=== PATIENT | male | born 1980 | race Caucasian/White ===

== ENCOUNTER 2017-02-05 20:00 | Emergency (ER) | payer BC, OTHER ==
[~2017-02-05 20:00] MED LIST: ALBUTEROL HFA60 DOSE; CELEXA20 MG PO; LOVASTATIN20 MG PO; NORVASC10 MG PO; PROTONIX20 MG PO; SYNTHROID25 MCG PO; TOPROL XL100 MG PO; ZESTRIL20 MG PO
--- NOTE | 2017-02-05 21:39 | DIAGNOSTIC IMAGING REPORT ---
PROCEDURE: CT SINUS/FACIAL BONES W/CONT CLINICAL INDICATION: Facial pain and facial sores. Left orbit and right facial swelling. TECHNIQUE: 95 ml of Isovue 300 injected intravenously and axial images were obtained through the face with coronal reformations. COMPARISON: None. FINDINGS: Mild to moderate soft tissue swelling over the left orbit and left face. There is mild soft tissue swelling over the right lower face. Orbits, sinuses, the rest of the soft tissues are normal. Airway appears normal. IMPRESSION: 1. Mild to moderate soft tissue and left orbit and face, consistent with periorbital cellulitis. 2. Mild soft tissue swelling over the right face. 3. No evidence of orbital cellulitis and post septal orbits appear normal. 4. Findings discussed with Dr. Jann Reddy. All CT scans at this facility use dose modulation, iterative reconstruction, and/or weight-based dosing when appropriate to reduce radiation dose to as low as reasonably achievable.
--- NOTE | 2017-02-05 23:07 | ED CLINICAL REPORT ---
Clinical Report - Physicians/Mid Levels [facility] [address] [place] [address] 02/05/2017 19:59 Patient: RAMA DAVIS Time Seen: 20:31. Arrived- By private vehicle. Historian- patient. HISTORY OF PRESENT ILLNESS Chief Complaint: SKIN RASH. This started about 2 days ago and is still present. It was gradual in onset and has been waxing/waning. It is described as painful. It has been located on the right cheek (left orbital area). It has been located on the left leg. No cause has been identified. Similar symptoms previously: Diagnosis: (facial abscess). Recent medical care: Not recently seen/assessed. REVIEW OF SYSTEMS No fever, chills, sore throat, cough or difficulty breathing. No headache, chest pain, abdominal pain, nausea or diarrhea. No difficulty with urination or vomiting. All systems otherwise negative, except as recorded above. PAST HISTORY See nurses notes. Hypertension. Asthma. Hyperlipidemia. Hypothyroidism. Pancreatitis. GE reflux. 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 Anxiety. Depression. History of oropharyngeal cancer. Previous treatment includes surgery. Surgeries: Right upper extremity fracture repair (wrist). Right lower extremity fracture repair (knee). Medications: Methadone HCl Oral 50mg, daily, last dose yesterday. Albuterol prin. Amlodipine 20 mg, q day. Citalopram Hydrobromide Oral (Tablet 20 mg) 1 tablet, day. Creon Oral (Capsule Delayed Release Particles 6000 unit) 1 capsule, with meals. Levothroid Oral 25 mcg, daily. Lisinopril Oral 20 mg, daily. Allergies: Penicillins. SOCIAL HISTORY Smoker- current status unknown. Alcohol use. Last drink was 2 years ago. Patient is a recovering alcoholic. No drug use. ADDITIONAL NOTES The nursing notes have been reviewed. PHYSICAL EXAM Vital Signs: 02/05/2017 20:06 BP: 115/76. HR: 73. RR: 15. O2 saturation: 96%. Temp: 99.4 F. Blum-Hwang pain scale: 6/10. Have been reviewed. Appearance: Alert. Eyes: Pupils equal, round and reactive to light. ENT: Pharynx normal. Neck: Neck supple. CVS: Normal heart rate and rhythm. Heart sounds normal. Respiratory: No respiratory distress. Breath sounds normal. Abdomen: Nontender. Skin: Medium area of cellulitis with tenderness, erythema and warmth to the face, left periorbital area and left cheek. Extremities: Normal external inspection. Extremities nontender. Neuro: No motor deficit. No sensory deficit. LABS, X-RAYS, AND EKG CT Face: IMPRESSION: 1. Mild to moderate soft tissue and left orbit and face, consistent with periorbital cellulitis. 2. Mild soft tissue swelling over the right face. 3. No evidence of orbital cellulitis and post septal orbits appear normal. The study was interpreted contemporaneously by me and discussed with the radiologist. Laboratory Tests: UA-Culture if indicated: (MARINE: 02/05/2017 22:00) ( [facility] 02/05/2017 22:24) Final results Test Result Flag Units (Reference) URINE COLOR YELLOW URINE APPEARANCE CLEAR URINE GLUCOSE NEGATIVE (NEGATIVE) URINE BILIRUBIN NEGATIVE (NEGATIVE) URINE KETONE NEGATIVE (NEGATIVE) URINE SPECIFIC GRAVITY <= 1.005 L (1.010-1.030) URINE PH 6.0 (5.0-8.0) URINE PROTEIN NEGATIVE (NEGATIVE) URINE UROBILINOGEN 0.2 EU/dL (0.2-1.0) URINE NITRITE NEGATIVE (NEGATIVE) URINE BLOOD NEGATIVE (NEGATIVE) URINE LEUK ESTERASE NEGATIVE (NEGATIVE) URINE RBC 0-1 rbc/hpf (0-1) URINE WBC 0-1 wbc/hpf (0-1) URINE EPITHELIAL CELLS 0-1 EPI/hpf (0-5) URINE BACTERIA NONE SEEN (NONE SEEN) URINE COMMENT CULT NOT INDICATED URINE CULTURES ARE SET-UP BASED ON THE FOLLOWING CRITERIA:POSITIVE NITRITEPOSITIVE LEUKOCYTE ESTERASEGREATER THAN 10 WHITE BLOOD CELLSMODERATE (2+) OR GREATER BACTERIA CBC w Diff: (MARINE: 02/05/2017 21:09) ( [facility] 02/05/2017 21:41) Final results Test Result Flag Units (Reference) WHITE BLOOD COUNT 12.6 H K/uL (4.5-11.5) RED BLOOD COUNT 4.72 M/uL (4.50-5.90) HEMOGLOBIN 14.1 gm/dL (13.5-17.5) HEMATOCRIT 41.5 % (41.0-53.0) MEAN CELL VOLUME 88 fL (80-100) MEAN CORPUSCULAR HGB 30 pg (26-34) MEAN CORPUSCULAR HGB CONC 34 g/dL (31-37) RED CELL DISTRIBUTION WIDTH 13.4 % (11.6-14.8) PLATELET COUNT 211 K/uL (150-400) NEUTROPHIL % 83.0 H % (50-75) LYMPH % 11.1 L % (25-40) MONO % 4.7 % (3-14) EOSINOPHIL % 0.6 % (0-4) BASOPHIL % 0.6 % (0-2) Lactate, Serum: (MARINE: 02/05/2017 21:31) ( [facility] 02/05/2017 22:05) Final results Test Result Flag Units (Reference) LACTIC ACID 1.9 mmol/L (0.4-2.0) CMP: (MARINE: 02/05/2017 21:23) ( [facility] 02/05/2017 21:49) Final results Test Result Flag Units (Reference) GLUCOSE 141 H mg/dL (70-110) BUN 12 mg/dL (7-18) CREATININE 1.0 mg/dL (0.6-1.3) Estimated GFR >60 mL/min Estimated GFR- >60 mL/min Note: Persistent reduction over 3 months in eGFR<60 mL/min/1.73 m2 defines CKD. Patients with eGFR values>=60 mL/min/1.73 m2 may also have CKD if evidence ofpersistent proteinuria. Additional information may be foundat www.kidney.org. SODIUM 137 mmol/L (136-145) POTASSIUM 4.3 mmol/L (3.5-5.1) CHLORIDE 102 mmol/L (98-107) CARBON DIOXIDE 31 mmol/L (21-32) CALCIUM 8.7 mg/dL (8.5-10.1) TOTAL PROTEIN 6.6 g/dL (6.4-8.2) ALBUMIN 3.4 g/dL (3.3-5.0) BILIRUBIN, TOTAL 0.2 mg/dL (0.0-1.0) ALKALINE PHOSPHATASE 95 U/L (46-116) AST (SGOT) 14 L U/L (15-37) ALT (SGPT) 23 U/L (12-78) Urine Drug Screen: (MARINE: 02/05/2017 22:00) ( [facility] 02/05/2017 22:41) Final results Test Result Flag Units (Reference) AMPHETAMINE/METHAMPHETAMINE POSITIVE H (NEGATIVE) BARBITURATE NEGATIVE (NEGATIVE) BENZODIAZEPINE NEGATIVE (NEGATIVE) CANNABINOID NEGATIVE (NEGATIVE) COCAINE NEGATIVE (NEGATIVE) ECSTASY NEGATIVE (NEGATIVE) METHADONE POSITIVE H (NEGATIVE) OPIATE POSITIVE H (NEGATIVE) The urine drug screen is a qualitative screening test fordrug overdose and abuse. All screen results should beconsidered as presumptive.Drugs screened for are as follows:BenzodiazepinesCocaineAmphetamines/MetamphetaminesTHC (Tetrahydrocannabinol)OpiatesBarbituratesEcstasyMethadonePositive results are unconfirmed. For confirmation, notifythe lab for the specimen to be sent to the reference lab.All confirmations must be performed by a differentmethodology.The ingestion of natural herbal and plant productscontaining Ephedra/Ephedra metabolites can produce in urineone or more substances capable of cross reacting withamphetamine/methamphetamine immunoassays. These testsprovide a preliminary result only. A more specificalternative chemical method must be used to obtain aconfirmed analytical result. BNP: (MARINE: 02/05/2017 21:09) ( [facility] 02/05/2017 21:40) Final results Test Result Flag Units (Reference) B-TYPE NATRIURETIC PEPTIDE 70.9 pg/ml (5-100) Lipase: (MARINE: 02/05/2017 21:09) ( [facility] 02/05/2017 22:10) Final results Test Result Flag Units (Reference) LIPASE 40 L U/L (73-393) AMYLASE 22 L U/L (25-115) THYROID STIMULATING HORMONE 0.885 uIU/mL (0.34-3.74) . PROGRESS AND PROCEDURES Course of Care: Patient is stable. Patient/family counseled. Old medical records reviewed. Disposition: Discharged. Condition: stable. CLINICAL IMPRESSION Cellulitis of the left periorbital area and left cheek area. Substance abuse- narcotics, amphetamines and methamphetamines. INSTRUCTIONS Warnings: Further evaluation is necessary. GENERAL WARNINGS: Return or contact your physician immediately if your condition worsens or changes unexpectedly, if not improving as expected, or if other problems arise. Your Current Medications: CONTINUE TAKING THE FOLLOWING MEDICATIONS: Albuterol prin*. Amlodipine* : 20 mg q day. Citalopram Hydrobromide Oral : Tablet 20 mg, 1 tablet day. Creon Oral : Capsule Delayed Release Particles 6000 unit, 1 capsule with meals. Levothroid Oral : 25 mcg daily. Lisinopril Oral : 20 mg daily. Methadone HCl Oral : 50mg daily, Last: yesterday. Prescription Medications: Clindamycin 300 mg: take 1 capsule orally every 6 hours for 10 days. No refill. Understanding of the discharge instructions verbalized by patient. Follow-up with: [facility], , , [address], , [place], [address] Follow up tomorrow. Call for an appointment. (Electronically signed by Jann Reddy MD 02/06/2017 8:31)
--- NOTE | 2017-02-05 23:07 | ED NURSING NOTES ---
Clinical Report - Nurses [facility] [address] [place] [address] 02/05/2017 19:59 [id number] Triage time 20:06. Acuity: LEVEL 3. Chief Complaint: (facial swelling, redness and pain on left leg.). Alert. No acute distress. --20:13 Michelle Franks R.N. 20:06 02/05/17. BP: 115/76. HR: 73. RR: 15 (regular and unlabored). O2 saturation: 96% on room air. Temp: 99.4 F (oral). Blum-Hwang pain scale: 6/10. --20:13 Michelle Franks R.N. Weight: 81.6 kg stated. Height/Length: 73 inches Per Patient. BMI: 23.7. --20:10 Michelle Franks R.N. Medications Albuterol prin. Amlodipine 20 mg, q day. Citalopram Hydrobromide Oral (Tablet 20 mg) 1 tablet, day. Creon Oral (Capsule Delayed Release Particles 6000 unit) 1 capsule, with meals. Levothroid Oral 25 mcg, daily. Lisinopril Oral 20 mg, daily. --20:09 Michelle Franks R.N. Methadone HCl Oral 50mg, daily, last dose yesterday. --20:09 Michelle Franks R.N. Allergies Penicillins. --20:09 Michelle Franks R.N. History Arrived by private vehicle. Historian: patient. Accompanied by (dropped off by , will be back to pick him up). Primary physician (None). Onset. (about 2 days ago). He has had weakness. 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 (last dose about 2 hours PIPE STRIPPER). PAST MEDICAL HX: Immunizations: up-to-date. SOCIAL HX: Heavy tobacco smoker (cigarette)- 1 pack per day. Alcohol use. Last drink was 2 years ago. No drug use. NUTRITIONAL RISK ASSESSMENT: The nutritional risk assessment revealed no deficiencies. FUNCTIONAL ASSESSMENT: Functional assessment: no impairments noted. --20:13 Michelle Franks R.N. PROBLEMS: Asthma. Depression. Anxiety Reaction. Gastroesophageal Reflux. Cardiovascular Risk Factors. Atypical Chest Pain. Hypertension. Thyroid Disease. Cholesterol problems . --20:10 Michelle Franks R.N. Leukocytosis [RuleOut]. Abdominal Pain [RuleOut]. Pancreatitis [RuleOut]. --20:10 Michelle Franks R.N. ADDITIONAL SURGERIES: Ca bx in the mouth. Wrist rt, knee rt. --20:10 Michelle Franks R.N. Interventions ID band on patient. To treatment room. --20:13 Michelle Franks R.N. PHYSICAL ASSESSMENT Ambulatory to room. ( pt presents with multiple sores on face). GENERAL / NEURO / PSYCH: Alert. Oriented X 4. Appears in no acute distress. HEENT: ( facial swelling around left eye noted.). Mucous membranes are pink. RESPIRATORY: Respirations not labored. CVS: Capillary refill less than 2 seconds. SKIN: Skin is warm and dry. Erythematous skin rash located on the left leg. --20:15 Michelle Franks R.N. NURSING PROGRESS NOTES Head of bed elevated. Two patient identifiers checked. Call light placed in reach. Side rails up x 1. Bed placed in lowest position. Brakes of bed on. --20:15 Michelle Franks R.N. Patient ready for evaluation- chart flagged. --20:15 Michelle Franks R.N. 21:14 02/05/2017 Site #1 started via IV in the right antecubital space with an 20g angiocath; one attempt. Blood drawn: rainbow set. Labeled in the presence of the patient and sent to the lab. Saline lock flushed with saline. --:24 William Veliz R.N. :24 02/05/2017 Started bag #1 1000 mL IV Fluids IV NS (Saline); at 1000 mL/hr over 1 hour(s) via site #1 via IV pump. Allergies verified and confirmed 5 rights. IV patency established. IV site checked: no pain, redness, or swelling. IV flushed thoroughly pre- and post-medication administration. --21:24 William Veliz R.N. 21:25 02/05/2017 Started 1 gm of Vancomycin IVPB in bag #1 200 mL; at 200 mL/hr over 2 hour(s) via site #1 via IV pump. Allergies verified and confirmed 5 rights. IV patency established. IV site checked: no pain, redness, or swelling. IV flushed thoroughly pre- and post-medication administration. --21:25 William Veliz R.N. 21:34 02/05/2017 Dilaudid (HYDROmorphone HCl PF) IVP 0.5 mg given over 2 minute(s) via site #1. Allergies verified, confirmed 5 rights and sedative warning given to the patient and patient's coil connector. IV patency established. IV site checked: no pain, redness, or swelling. IV flushed thoroughly pre- and post-medication administration. --21:34 William Veliz R.N. ( urine cup given to patient and sample requested). --21:36 William Veliz R.N. DISPOSITION / DISCHARGE 23:28 02/05/17. BP: 128/75. HR: 65. RR: 18. O2 saturation: 96% on room air. --23:30 William Veliz R.N. Departure time: 2327. Condition at departure: stable. Learning barriers present. Discharge instructions provided and reviewed with the patient. Reviewed warnings. Reviewed medication(s) side effects, precautions, dosing and course information. Prescription(s) given to the patient. Treatments reviewed. Reviewed referrals for followup. Patient verbalized understanding. Written instructions provided in [place]. The patient was discharged home and accompanied by coil connector. He left the Emergency Department ambulatory and via private vehicle. Office Aide driving. --23:30 William Veliz R.N. 22:31 02/05/2017 IV Fluids IV NS Discontinued: completed. Total amount infused: 1000 mL. IV patency established. IV site checked: no pain, redness, or swelling. IV flushed thoroughly. --23:31 William Veliz R.N. 23:20 02/05/2017 Site #1 removed upon discharge. Manual pressure and bandaid applied. --23:30 William Veliz R.N. 23:21 02/05/2017 Vancomycin IVPB Discontinued: infused. Total amount infused: 200 mL. IV patency established. IV site checked: no pain, redness, or swelling. IV flushed thoroughly. --23:31 William Veliz R.N. Locked/Released at 02/05/2017 23:32 by William Veliz R.N.
--- NOTE | 2017-02-05 23:07 | ED NURSING NOTES ---
Clinical Report - Nurses [facility] [address] [place] [address] 02/05/2017 19:59 [id number] Triage time 20:06. Acuity: LEVEL 3. Chief Complaint: (facial swelling, redness and pain on left leg.). Alert. No acute distress. --20:13 Michelle Franks R.N. 20:06 02/05/17. BP: 115/76. HR: 73. RR: 15 (regular and unlabored). O2 saturation: 96% on room air. Temp: 99.4 F (oral). Blum-Hwang pain scale: 6/10. --20:13 Michelle Franks R.N. Weight: 81.6 kg stated. Height/Length: 73 inches Per Patient. BMI: 23.7. --20:10 Michelle Franks R.N. Medications Albuterol prin. Amlodipine 20 mg, q day. Citalopram Hydrobromide Oral (Tablet 20 mg) 1 tablet, day. Creon Oral (Capsule Delayed Release Particles 6000 unit) 1 capsule, with meals. Levothroid Oral 25 mcg, daily. Lisinopril Oral 20 mg, daily. --20:09 Michelle Franks R.N. Methadone HCl Oral 50mg, daily, last dose yesterday. --20:09 Michelle Franks R.N. Allergies Penicillins. --20:09 Michelle Franks R.N. History Arrived by private vehicle. Historian: patient. Accompanied by (dropped off by , will be back to pick him up). Primary physician (None). Onset. (about 2 days ago). He has had weakness. 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 (last dose about 2 hours TEXTURING MACHINE FIXER). PAST MEDICAL HX: Immunizations: up-to-date. SOCIAL HX: Heavy tobacco smoker (cigarette)- 1 pack per day. Alcohol use. Last drink was 2 years ago. No drug use. NUTRITIONAL RISK ASSESSMENT: The nutritional risk assessment revealed no deficiencies. FUNCTIONAL ASSESSMENT: Functional assessment: no impairments noted. --20:13 Michelle Franks R.N. PROBLEMS: Asthma. Depression. Anxiety Reaction. Gastroesophageal Reflux. Cardiovascular Risk Factors. Atypical Chest Pain. Hypertension. Thyroid Disease. Cholesterol problems . --20:10 Michelle Franks R.N. Leukocytosis [RuleOut]. Abdominal Pain [RuleOut]. Pancreatitis [RuleOut]. --20:10 Michelle Franks R.N. ADDITIONAL SURGERIES: Ca bx in the mouth. Wrist rt, knee rt. --20:10 Michelle Franks R.N. Interventions ID band on patient. To treatment room. --20:13 Michelle Franks R.N. PHYSICAL ASSESSMENT Ambulatory to room. ( pt presents with multiple sores on face). GENERAL / NEURO / PSYCH: Alert. Oriented X 4. Appears in no acute distress. HEENT: ( facial swelling around left eye noted.). Mucous membranes are pink. RESPIRATORY: Respirations not labored. CVS: Capillary refill less than 2 seconds. SKIN: Skin is warm and dry. Erythematous skin rash located on the left leg. --20:15 Michelle Franks R.N. NURSING PROGRESS NOTES Head of bed elevated. Two patient identifiers checked. Call light placed in reach. Side rails up x 1. Bed placed in lowest position. Brakes of bed on. --20:15 Michelle Franks R.N. Patient ready for evaluation- chart flagged. --20:15 Michelle Franks R.N. 21:14 02/05/2017 Site #1 started via IV in the right antecubital space with an 20g angiocath; one attempt. Blood drawn: rainbow set. Labeled in the presence of the patient and sent to the lab. Saline lock flushed with saline. --:24 William Veliz R.N. :24 02/05/2017 Started bag #1 1000 mL IV Fluids IV NS (Saline); at 1000 mL/hr over 1 hour(s) via site #1 via IV pump. Allergies verified and confirmed 5 rights. IV patency established. IV site checked: no pain, redness, or swelling. IV flushed thoroughly pre- and post-medication administration. --21:24 William Veliz R.N. 21:25 02/05/2017 Started 1 gm of Vancomycin IVPB in bag #1 200 mL; at 200 mL/hr over 2 hour(s) via site #1 via IV pump. Allergies verified and confirmed 5 rights. IV patency established. IV site checked: no pain, redness, or swelling. IV flushed thoroughly pre- and post-medication administration. --21:25 William Veliz R.N. 21:34 02/05/2017 Dilaudid (HYDROmorphone HCl PF) IVP 0.5 mg given over 2 minute(s) via site #1. Allergies verified, confirmed 5 rights and sedative warning given to the patient and patient's solution specialist. IV patency established. IV site checked: no pain, redness, or swelling. IV flushed thoroughly pre- and post-medication administration. --21:34 William Veliz R.N. ( urine cup given to patient and sample requested). --21:36 William Veliz R.N. DISPOSITION / DISCHARGE 23:28 02/05/17. BP: 128/75. HR: 65. RR: 18. O2 saturation: 96% on room air. --23:30 William Veliz R.N. Departure time: 2327. Condition at departure: stable. Learning barriers present. Discharge instructions provided and reviewed with the patient. Reviewed warnings. Reviewed medication(s) side effects, precautions, dosing and course information. Prescription(s) given to the patient. Treatments reviewed. Reviewed referrals for followup. Patient verbalized understanding. Written instructions provided in [place]. The patient was discharged home and accompanied by solution specialist. He left the Emergency Department ambulatory and via private vehicle. Electrical Calibrator driving. --23:30 William Veliz R.N. 22:31 02/05/2017 IV Fluids IV NS Discontinued: completed. Total amount infused: 1000 mL. IV patency established. IV site checked: no pain, redness, or swelling. IV flushed thoroughly. --23:31 William Veliz R.N. 23:20 02/05/2017 Site #1 removed upon discharge. Manual pressure and bandaid applied. --23:30 William Veliz R.N. 23:21 02/05/2017 Vancomycin IVPB Discontinued: infused. Total amount infused: 200 mL. IV patency established. IV site checked: no pain, redness, or swelling. IV flushed thoroughly. --23:31 William Veliz R.N. Locked/Released at 02/05/2017 23:32 by William Veliz R.N.
--- NOTE | 2017-02-05 23:07 | ED CLINICAL REPORT ---
Clinical Report - Physicians/Mid Levels [facility] [address] [place] [address] 02/05/2017 19:59 Patient: RAMA DAVIS Time Seen: 20:31. Arrived- By private vehicle. Historian- patient. HISTORY OF PRESENT ILLNESS Chief Complaint: SKIN RASH. This started about 2 days ago and is still present. It was gradual in onset and has been waxing/waning. It is described as painful. It has been located on the right cheek (left orbital area). It has been located on the left leg. No cause has been identified. Similar symptoms previously: Diagnosis: (facial abscess). Recent medical care: Not recently seen/assessed. REVIEW OF SYSTEMS No fever, chills, sore throat, cough or difficulty breathing. No headache, chest pain, abdominal pain, nausea or diarrhea. No difficulty with urination or vomiting. All systems otherwise negative, except as recorded above. PAST HISTORY See nurses notes. Hypertension. Asthma. Hyperlipidemia. Hypothyroidism. Pancreatitis. GE reflux. 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 Anxiety. Depression. History of oropharyngeal cancer. Previous treatment includes surgery. Surgeries: Right upper extremity fracture repair (wrist). Right lower extremity fracture repair (knee). Medications: Methadone HCl Oral 50mg, daily, last dose yesterday. Albuterol prin. Amlodipine 20 mg, q day. Citalopram Hydrobromide Oral (Tablet 20 mg) 1 tablet, day. Creon Oral (Capsule Delayed Release Particles 6000 unit) 1 capsule, with meals. Levothroid Oral 25 mcg, daily. Lisinopril Oral 20 mg, daily. Allergies: Penicillins. SOCIAL HISTORY Smoker- current status unknown. Alcohol use. Last drink was 2 years ago. Patient is a recovering alcoholic. No drug use. ADDITIONAL NOTES The nursing notes have been reviewed. PHYSICAL EXAM Vital Signs: 02/05/2017 20:06 BP: 115/76. HR: 73. RR: 15. O2 saturation: 96%. Temp: 99.4 F. Blum-Hwang pain scale: 6/10. Have been reviewed. Appearance: Alert. Eyes: Pupils equal, round and reactive to light. ENT: Pharynx normal. Neck: Neck supple. CVS: Normal heart rate and rhythm. Heart sounds normal. Respiratory: No respiratory distress. Breath sounds normal. Abdomen: Nontender. Skin: Medium area of cellulitis with tenderness, erythema and warmth to the face, left periorbital area and left cheek. Extremities: Normal external inspection. Extremities nontender. Neuro: No motor deficit. No sensory deficit. LABS, X-RAYS, AND EKG CT Face: IMPRESSION: 1. Mild to moderate soft tissue and left orbit and face, consistent with periorbital cellulitis. 2. Mild soft tissue swelling over the right face. 3. No evidence of orbital cellulitis and post septal orbits appear normal. The study was interpreted contemporaneously by me and discussed with the radiologist. Laboratory Tests: UA-Culture if indicated: (MARINE: 02/05/2017 22:00) ( [facility] 02/05/2017 22:24) Final results Test Result Flag Units (Reference) URINE COLOR YELLOW URINE APPEARANCE CLEAR URINE GLUCOSE NEGATIVE (NEGATIVE) URINE BILIRUBIN NEGATIVE (NEGATIVE) URINE KETONE NEGATIVE (NEGATIVE) URINE SPECIFIC GRAVITY <= 1.005 L (1.010-1.030) URINE PH 6.0 (5.0-8.0) URINE PROTEIN NEGATIVE (NEGATIVE) URINE UROBILINOGEN 0.2 EU/dL (0.2-1.0) URINE NITRITE NEGATIVE (NEGATIVE) URINE BLOOD NEGATIVE (NEGATIVE) URINE LEUK ESTERASE NEGATIVE (NEGATIVE) URINE RBC 0-1 rbc/hpf (0-1) URINE WBC 0-1 wbc/hpf (0-1) URINE EPITHELIAL CELLS 0-1 EPI/hpf (0-5) URINE BACTERIA NONE SEEN (NONE SEEN) URINE COMMENT CULT NOT INDICATED URINE CULTURES ARE SET-UP BASED ON THE FOLLOWING CRITERIA:POSITIVE NITRITEPOSITIVE LEUKOCYTE ESTERASEGREATER THAN 10 WHITE BLOOD CELLSMODERATE (2+) OR GREATER BACTERIA CBC w Diff: (MARINE: 02/05/2017 21:09) ( [facility] 02/05/2017 21:41) Final results Test Result Flag Units (Reference) WHITE BLOOD COUNT 12.6 H K/uL (4.5-11.5) RED BLOOD COUNT 4.72 M/uL (4.50-5.90) HEMOGLOBIN 14.1 gm/dL (13.5-17.5) HEMATOCRIT 41.5 % (41.0-53.0) MEAN CELL VOLUME 88 fL (80-100) MEAN CORPUSCULAR HGB 30 pg (26-34) MEAN CORPUSCULAR HGB CONC 34 g/dL (31-37) RED CELL DISTRIBUTION WIDTH 13.4 % (11.6-14.8) PLATELET COUNT 211 K/uL (150-400) NEUTROPHIL % 83.0 H % (50-75) LYMPH % 11.1 L % (25-40) MONO % 4.7 % (3-14) EOSINOPHIL % 0.6 % (0-4) BASOPHIL % 0.6 % (0-2) Lactate, Serum: (MARINE: 02/05/2017 21:31) ( [facility] 02/05/[facility] 22:05) Final results Test Result Flag Units (Reference) LACTIC ACID 1.9 mmol/L (0.4-2.0) CMP: (MARINE: 02/05/2017 21:23) ( [facility] 02/05/2017 21:49) Final results Test Result Flag Units (Reference) GLUCOSE 141 H mg/dL (70-110) BUN 12 mg/dL (7-18) CREATININE 1.0 mg/dL (0.6-1.3) Estimated GFR >60 mL/min Estimated GFR- >60 mL/min Note: Persistent reduction over 3 months in eGFR<60 mL/min/1.73 m2 defines CKD. Patients with eGFR values>=60 mL/min/1.73 m2 may also have CKD if evidence ofpersistent proteinuria. Additional information may be foundat www.kidney.org. SODIUM 137 mmol/L (136-145) POTASSIUM 4.3 mmol/L (3.5-5.1) CHLORIDE 102 mmol/L (98-107) CARBON DIOXIDE 31 mmol/L (21-32) CALCIUM 8.7 mg/dL (8.5-10.1) TOTAL PROTEIN 6.6 g/dL (6.4-8.2) ALBUMIN 3.4 g/dL (3.3-5.0) BILIRUBIN, TOTAL 0.2 mg/dL (0.0-1.0) ALKALINE PHOSPHATASE 95 U/L (46-116) AST (SGOT) 14 L U/L (15-37) ALT (SGPT) 23 U/L (12-78) Urine Drug Screen: (MARINE: 02/05/2017 22:00) ( [facility] 22:41[facility] Final results Test Result Flag Units (Reference) AMPHETAMINE/METHAMPHETAMINE POSITIVE H (NEGATIVE) BARBITURATE NEGATIVE (NEGATIVE) BENZODIAZEPINE NEGATIVE (NEGATIVE) CANNABINOID NEGATIVE (NEGATIVE) COCAINE NEGATIVE (NEGATIVE) ECSTASY NEGATIVE (NEGATIVE) METHADONE POSITIVE H (NEGATIVE) OPIATE POSITIVE H (NEGATIVE) The urine drug screen is a qualitative screening test fordrug overdose and abuse. All screen results should beconsidered as presumptive.Drugs screened for are as follows:BenzodiazepinesCocaineAmphetamines/MetamphetaminesTHC (Tetrahydrocannabinol)OpiatesBarbituratesEcstasyMethadonePositive results are unconfirmed. For confirmation, notifythe lab for the specimen to be sent to the reference lab.All confirmations must be performed by a differentmethodology.The ingestion of natural herbal and plant productscontaining Ephedra/Ephedra metabolites can produce in urineone or more substances capable of cross reacting withamphetamine/methamphetamine immunoassays. These testsprovide a preliminary result only. A more specificalternative chemical method must be used to obtain aconfirmed analytical result. BNP: (MARINE: 02/05/2017 21:09) ( [facility] 02/05/2017 21:40) Final results Test Result Flag Units (Reference) B-TYPE NATRIURETIC PEPTIDE 70.9 pg/ml (5-100) Lipase: (MARINE: 02/05/2017 21:09) ( [facility] 02/05/2017 22:10) Final results Test Result Flag Units (Reference) LIPASE 40 L U/L (73-393) AMYLASE 22 L U/L (25-115) THYROID STIMULATING HORMONE 0.885 uIU/mL (0.34-3.74) . PROGRESS AND PROCEDURES Course of Care: Patient is stable. Patient/family counseled. Old medical records reviewed. Disposition: Discharged. Condition: stable. CLINICAL IMPRESSION Cellulitis of the left periorbital area and left cheek area. Substance abuse- narcotics, amphetamines and methamphetamines. INSTRUCTIONS Warnings: Further evaluation is necessary. GENERAL WARNINGS: Return or contact your physician immediately if your condition worsens or changes unexpectedly, if not improving as expected, or if other problems arise. Your Current Medications: CONTINUE TAKING THE FOLLOWING MEDICATIONS: Albuterol prin*. Amlodipine* : 20 mg q day. Citalopram Hydrobromide Oral : Tablet 20 mg, 1 tablet day. Creon Oral : Capsule Delayed Release Particles 6000 unit, 1 capsule with meals. Levothroid Oral : 25 mcg daily. Lisinopril Oral : 20 mg daily. Methadone HCl Oral : 50mg daily, Last: yesterday. Prescription Medications: Clindamycin 300 mg: take 1 capsule orally every 6 hours for 10 days. No refill. Understanding of the discharge instructions verbalized by patient. Follow-up with: [facility], , , [address], , [place], [id number] Follow up tomorrow. Call for an appointment. (Electronically signed by Jann Reddy MD 02/06/2017 8:31)
--- NOTE | 2017-02-05 23:08 | ED ORDER SUMMARY ---
..... Patient: RAMA DAVIS OrderSheet [facility] VisitID: [id number] [address] [place] [address] 36y, M Registration Date/Time: 02/05/2017 ORDER SHEET Weight: 81.6 kg (stated) Allergies: Penicillins GENERAL ORDERS: UA-Culture if indicated Urgent (20:43 02/05/2017 [facility]) (Ack 20:47 CHagerty ER Tyre Builder) (22:26 DDavis R.N.) BNP Urgent (20:43 02/05/2017 [facility] DO) (Ack 20:47 [facility] Tyre Builder) (21:21 Zbigniew ROSALES) (Cancelled: Other21:21 Zbigniew ROSALES) Amylase Urgent (20:43 02/05/2017 [facility]) (Ack 20:47 [facility] Tyre Builder) (21:23 DDavis R.N.) Lipase Urgent (20:43 02/05/2017 [facility]) (Ack 20:47 [facility] ER Tyre Builder) (21:23 DDavis R.N.) Urine Drug Screen Ur[facility] (20:43 [facility] (Ack 20:47 CHagerty ER Tyre Builder) (22:26 DDavis R.N.) TSH Urgent (20:43 02/05/2017 [facility] DO) (Ack 20:47 CHagerty ER Tyre Builder) (21:23 DDavis R.N.) CT IAC/PF/Orbit w Cont (rule out post septal cellulitis) Urgent (20:44 02/05/2017 [facility]) (Ack 20:47 CHagerty ER Tyre Builder) (Cancelled: Other21:02 CHagerty ER Tyre Builder) CT Sinus/Facial Bones w Cont Urgent (21:02 02/05/2017 [facility] Tyre Builder written order [facility]) (Ack 21:04 CHagerty ER Tyre Builder) (21:24 MCampbell) CBC w Diff Urgent (21:23 02/05/2017 Zbigniew ROSALES) (21:23 DDavis R.N.) CMP Urgent (21:23 02/05/2017 Zbigniew ROSALES) (21:23 DDavis R.N.) Lactate, Serum Urgent (21:23 02/05/2017 Zbigniew ROSALES) (Ack 21:25 DDavis R.N.) (Ack 21:25 Liberty KIMBROUGH Tyre Builder) (21:34 DDavis R.N.) MEDICATION ORDERS: IV FLUIDS: IV NS : initial bolus 1000 mL (1000 mL/hr), then 500 mL/hr for X2 (NOW) (20:42 02/05/2017 [facility]) (Ack 20:47 RCollier R.N.) (21:24 DDavis R.N.) Vancomycin IV 1 gm/200mL (NOW) (20:42 02/05/2017 [facility]) (Ack 20:47 RCollier R.N.) (21:25 DDavis R.N.) Dilaudid IV 0.5 mg (HIGH ALERT MEDICATION, NOW) (21:21 02/05/2017 [facility]) (Ack 21:26 RCollier R.N.) (21:34 DDavis R.N.) ORDER SHEET NOTES: [Electronically signed by William Veliz R.N. (23:32 02/05/2017)] [Electronically signed by Jann Reddy MD (08:31 02/06/2017)] [Electronically locked/signed by William Veliz R.N. (23:32 02/05/2017)]
--- NOTE | 2017-02-05 23:08 | ED ORDER SUMMARY ---
..... Patient: RAMA DAVIS OrderSheet [facility] VisitID: [id number] [address] [place] [address] 36y, M Registration Date/Time: 02/05/2017 ORDER SHEET Weight: 81.6 kg (stated) Allergies: Penicillins GENERAL ORDERS: UA-Culture if indicated Urgent (20:43 02/05/2017 [facility]) (Ack 20:47 CHagerty ER Contracts Administrator) (22:26 DDavis R.N.) BNP Urgent (20:43 02/05/2017 [facility] DO) (Ack 20:47 CHagerty ER Contracts Administrator) (21:21 Zbigniew ROSALES) (Cancelled: Other21:21 Zbigniew ROSALES) Amylase Urgent (20:43 02/05/2017 [facility]) (Ack 20:47 CHagerty ER Contracts Administrator) (21:23 DDavis R.N.) Lipase Urgent (20:43 02/05/2017 [facility]) (Ack 20:47 CHagerty ER Contracts Administrator) (21:23 DDavis R.N.) Urine Drug Screen Ur[facility] (20:43 [facility] ) (Ack 20:47 CHagerty ER Contracts Administrator) (22:26 DDavis R.N.) TSH Urgent (20:43 02/05/2017 [facility] DO) (Ack 20:47 CHagerty ER Contracts Administrator) (21:23 DDavis R.N.) CT IAC/PF/Orbit w Cont (rule out post septal cellulitis) Urgent (20:44 02/05/2017 [facility]) (Ack 20:47 CHagerty ER Contracts Administrator) (Cancelled: Other21:02 CHagerty ER Contracts Administrator) CT Sinus/Facial Bones w Cont Urgent (21:02 02/05/2017 [facility]ager[facility] Contracts Administrator written order [facility]) (Ack 21:04 CHagerty ER Contracts Administrator) (21:24 MCampbell) CBC w Diff Urgent (21:23 02/05/2017 Zbigniew ROSALES) (21:23 DDavis R.N.) CMP Urgent (21:23 02/05/2017 Zbigniew ROSALES) (21:23 DDavis R.N.) Lactate, Serum Urgent (21:23 02/05/2017 Zbigniew ROSALES) (Ack 21:25 DDavis R.N.) (Ack 21:25 Liberty KIMBROUGH Contracts Administrator) (21:34 DDavis R.N.) MEDICATION ORDERS: IV FLUIDS: IV NS : initial bolus 1000 mL (1000 mL/hr), then 500 mL/hr for X2 (NOW) (20:42 02/05/2017 [facility]) (Ack 20:47 RCollier R.N.) (21:24 DDavis R.N.) Vancomycin IV 1 gm/200mL (NOW) (20:42 02/05/2017 [facility]) (Ack 20:47 RCollier R.N.) (21:25 DDavis R.N.) Dilaudid IV 0.5 mg (HIGH ALERT MEDICATION, NOW) (21:21 02/05/2017 [facility]) (Ack 21:26 RCollier R.N.) (21:34 DDavis R.N.) ORDER SHEET NOTES: [Electronically signed by William Veliz R.N. (23:32 02/05/2017)] [Electronically signed by Jann Reddy MD (08:31 02/06/2017)] [Electronically locked/signed by William Veliz R.N. (23:32 02/05/2017)]
--- NOTE | 2017-02-06 08:31 | ED DISCHARGE INSTRUCTIONS ---
Patient: RAMA DAVIS General Instructions [facility] VisitID: [id number] [address] [place] [address] 36y, M Registration Date/Time: 02/05/2017 Cellulitis of the left periorbital area and left cheek area. Substance abuse- narcotics, amphetamines and methamphetamines. INSTRUCTIONS Warnings: Further evaluation is necessary. GENERAL WARNINGS: Return or contact your physician immediately if your condition worsens or changes unexpectedly, if not improving as expected, or if other problems arise. Your Current Medications: CONTINUE TAKING THE FOLLOWING MEDICATIONS: Albuterol prin*. Amlodipine* : 20 mg q day. Citalopram Hydrobromide Oral : Tablet 20 mg, 1 tablet day. Creon Oral : Capsule Delayed Release Particles 6000 unit, 1 capsule with meals. Levothroid Oral : 25 mcg daily. Lisinopril Oral : 20 mg daily. Methadone HCl Oral : 50mg daily, Last: yesterday. Prescription Medications: Clindamycin 300 mg: take 1 capsule orally every 6 hours for 10 days. No refill. Understanding of the discharge instructions verbalized by patient. Follow-up with: [facility], , , [address], , [place], [address] Follow up tomorrow. Call for an appointment. ADDITIONAL INFORMATION Facial Cellulitis You have an infection of the skin known as cellulitis. This usually starts with a scrape, cut or insect bite which becomes infected. It may also occur from an infected oil gland (pimple) or hair follicle. This can be a serious condition and must be watched closely to be sure the infection is not spreading. With antibiotic treatment, the size of the red area will gradually shrink in size until the skin returns to normal. This will take 7-10 days. The red area should never increase in size once the antibiotic medicine has been started. Occasionally, an infection will be resistant to one antibiotic and another one will have to be used. Home Care: 1) Take all of the antibiotic medicine exactly as prescribed until it is gone. Be careful not to miss any doses, especially during the first few days. 2) A cool compress (face cloth soaked in cool water) applied to the face may help with the swelling and pain. 3) You may use acetaminophen (Tylenol) or ibuprofen (Motrin, Advil) to control pain, unless another medicine was prescribed. [ NOTE : If you have chronic liver or kidney disease or ever had a stomach ulcer or GI bleeding, talk with your doctor before using these medicines.] (Aspirin should never be used in anyone under 18 years of age who is ill with a fever. It may cause severe liver damage.) Follow Up with your doctor or this facility as directed. Check the infected area daily for the warning signs listed below. Get Prompt Medical Attention if any of the following occur: -- Increasing area of redness, swelling or pain -- Pus or fluid drainage from the skin or the eye -- Fever of 100.5 F (38 C) oral or 101.5 F (38.6 C) rectal for more than two days on antibiotics -- Eyelid swells shut -- Increasing headache or neck pain -- Unusual drowsiness or confusion -- Convulsion (seizure) Periorbital Cellulitis This is an infection of the tissues around the eye. It is most often due to an infected scratch or insect bite. Sometimes a sinus infection can cause this problem. Home Care: 1) Take your antibiotic medicine exactly as directed, until it is finished. 2) You may use acetaminophen (Tylenol) or ibuprofen (Motrin, Advil) to control pain, unless another pain medicine was prescribed. [NOTE: If you have liver disease or ever had a stomach ulcer, talk with your doctor before using these medicines.] Do not use ibuprofen in children under six months of age. Follow Up with your doctor or as advised by our staff. Return Promptly or contact your doctor if any of the following occur: -- Increasing swelling around the eye -- Increasing redness -- Fever of 100.5 (38 C) oral or 101.5 (38.6 C) rectal for more than two days on antibiotics Drug Abuse Use and abuse of such drugs as marijuana, amphetamines (speed, crank), cocaine, heroin or prescription pain medicines (Vicodin, codeine), sedatives and sleeping pills (Valium, Klonopin), PCP, mescaline and LSD may lead to addiction or dependence. Once this occurs, you are at greater risk for any of the following: Craving for the drug and unable to stop using the drug even though you think you want to stop (psychological dependence) Drug withdrawal symptoms if you stop taking the drug (physical dependence) Loss of your job or your family Arrest, conviction and fdc sentence for possession of an illegal substance or for driving under the influence of such a substance Accidental injuries to yourself or others while you are under the influence of the drug (in a car or at home). HIV infection (much greater risk if you use IV drugs) Other sexually transmitted diseases (herpes, chlamydia, gonorrhea and others) Severe and fatal infection of the heart valves (if you use IV drugs) Stroke, heart attack, hepatitis B or C, kidney failure from overdose Home Care: Admit you have a drug problem. Ask for help from your family and close friends. Seek professional help. This could be in the form of individual psychotherapy or counseling or an outpatient, inpatient, or residential drug treatment program. Join a self-help group for drug abuse. Avoid friends who abuse drugs themselves or tempt you to continue abusing drugs. Eat a balanced diet and begin a regular exercise program. Follow Up with your doctor or as advised by our staff. Contact one of the resources below for help. National [employer] [place] on Alcoholism and Drug Dependence www.ncadd.org 670-596-ZEIY Narcotics Anonymous www.na.org 306-082-1481 National Alcohol and Substance Abuse Information Center (for referral to treatment programs) www.[employer] 961-024-4440 Get Prompt Medical Attention if any of the following occur: Agitation, anxiety, unable to sleep Unintended weight loss (more than 10 to 15 pounds over 3 months) Seizure Chest pain Fever of 100.4F (38C) or higher, or as directed by your healthcare provider Excess drowsiness or inability to be awakened Shortness of breath Slow breathing under 8 breaths per minute Cough with colored sputum Redness, swelling or tenderness at an injection site Clindamycin Hydrochloride Oral capsule What is this medicine? CLINDAMYCIN (KLIN da MYE sin) is a lincosamide antibiotic. It is used to treat certain kinds of bacterial infections. It will not work for colds, flu, or other viral infections. How should I use this medicine? Take this medicine by mouth with a full glass of water. Follow the directions on the prescription label. You can take this medicine with food or on an empty stomach. If the medicine upsets your stomach, take it with food. Take your medicine at regular intervals. Do not take your medicine more often than directed. Take all of your medicine as directed even if you think your are better. Do not skip doses or stop your medicine early. Talk to your security manager regarding the use of this medicine in children. Special care may be needed. What side effects may I notice from receiving this medicine? Side effects that you should report to your doctor or health reproductive healthcare assistant as soon as possible: allergic reactions like skin rash, itching or hives, swelling of the face, lips, or tongue dark urine pain on swallowing redness, blistering, peeling or loosening of the skin, including inside the mouth unusual bleeding or bruising unusually weak or tired yellowing of eyes or skin Side effects that usually do not require medical attention (report to your doctor or health reproductive healthcare assistant if they continue or are bothersome): diarrhea itching in the rectal or genital area joint pain nausea, vomiting stomach pain What may interact with this medicine? chloramphenicol erythromycin kaolin products What if I miss a dose? If you miss a dose, take it as soon as you can. If it is almost time for your next dose, take only that dose. Do not take double or extra doses. Where should I keep my medicine? Keep out of the reach of children. Store at room temperature between 20 and 25 degrees C (68 and 77 degrees F). Throw away any unused medicine after the expiration date. What should I tell my health care provider before I take this medicine? They need to know if you have any of these conditions: kidney disease liver disease stomach problems like colitis an unusual or allergic reaction to clindamycin, lincomycin, or other medicines, foods, dyes like tartrazine or preservatives or trying to get breast-feeding What should I watch for while using this medicine? Tell your doctor or healthcare professional if your symptoms do not start to get better or if they get worse. Do not treat diarrhea with over the counter products. Contact your doctor if you have diarrhea that lasts more than 2 days or if it is severe and watery. You have been given the following additional information: Cellulitis, Facial Carlotta-Orbital Cellulitis Drug Abuse Clindamycin Hydrochloride Oral capsule (Electronically signed by Jann Reddy MD 02/06/2017 8:31)
--- NOTE | 2017-02-06 08:31 | ED MAR SUMMARY ---
..... Medication Administration Record [facility] [address] [place] [address] Patient: RAMA DAVIS Visit ID: [id number] 36y, M Weight: 81.6 kg Height/Length: 73 in BMI: 23.7 ALLERGIES: Penicillins Start 21:24 02/05/2017 William Veliz R.N., Stop 22:31 02/05/2017 William Veliz R.N. Medication Administered: IV NS (SALINE), Dose: IV Fluids over 1 hour(s), Rate: 1000 mL/hr, Dispensed: 1000 mL bag, Site: #1 right AC. Medication Ordered: IV NS : initial bolus 1000 mL (1000 mL/hr), then 500 mL/hr for X2 (NOW). Start 21:25 02/05/2017 William Veliz R.N., Stop 23:02/05/2017 William Veliz R.N. Medication Administered: VANCOMYCIN [IVPB], Dose: 1 gm IVPB over 2 hour(s), Rate: 200 mL/hr, Dispensed: 200 mL bag, Site: #1 right AC. Medication Ordered: Vancomycin IV 1 gm/200mL (NOW). Given 21:34 02/05/2017 William Veliz R.N. Medication Administered: DILAUDID [IVP] (HYDROMORPHONE HCL PF), Dose: 0.5 mg IVP over 2 minute(s), Site: #1 right AC. Medication Ordered: Dilaudid IV 0.5 mg (HIGH ALERT MEDICATION, NOW).
--- NOTE | 2017-02-06 08:31 | ED DISCHARGE INSTRUCTIONS ---
Patient: RAMA DAVIS General Instructions [facility] VisitID: [id number] [address] [place] [address] 36y, M Registration Date/Time: 02/05/2017 Cellulitis of the left periorbital area and left cheek area. Substance abuse- narcotics, amphetamines and methamphetamines. INSTRUCTIONS Warnings: Further evaluation is necessary. GENERAL WARNINGS: Return or contact your physician immediately if your condition worsens or changes unexpectedly, if not improving as expected, or if other problems arise. Your Current Medications: CONTINUE TAKING THE FOLLOWING MEDICATIONS: Albuterol prin*. Amlodipine* : 20 mg q day. Citalopram Hydrobromide Oral : Tablet 20 mg, 1 tablet day. Creon Oral : Capsule Delayed Release Particles 6000 unit, 1 capsule with meals. Levothroid Oral : 25 mcg daily. Lisinopril Oral : 20 mg daily. Methadone HCl Oral : 50mg daily, Last: yesterday. Prescription Medications: Clindamycin 300 mg: take 1 capsule orally every 6 hours for 10 days. No refill. Understanding of the discharge instructions verbalized by patient. Follow-up with: [facility], , , [address], , [place], [id number] Follow up tomorrow. Call for an appointment. ADDITIONAL INFORMATION Facial Cellulitis You have an infection of the skin known as cellulitis. This usually starts with a scrape, cut or insect bite which becomes infected. It may also occur from an infected oil gland (pimple) or hair follicle. This can be a serious condition and must be watched closely to be sure the infection is not spreading. With antibiotic treatment, the size of the red area will gradually shrink in size until the skin returns to normal. This will take 7-10 days. The red area should never increase in size once the antibiotic medicine has been started. Occasionally, an infection will be resistant to one antibiotic and another one will have to be used. Home Care: 1) Take all of the antibiotic medicine exactly as prescribed until it is gone. Be careful not to miss any doses, especially during the first few days. 2) A cool compress (face cloth soaked in cool water) applied to the face may help with the swelling and pain. 3) You may use acetaminophen (Tylenol) or ibuprofen (Motrin, Advil) to control pain, unless another medicine was prescribed. [ NOTE : If you have chronic liver or kidney disease or ever had a stomach ulcer or GI bleeding, talk with your doctor before using these medicines.] (Aspirin should never be used in anyone under 18 years of age who is ill with a fever. It may cause severe liver damage.) Follow Up with your doctor or this facility as directed. Check the infected area daily for the warning signs listed below. Get Prompt Medical Attention if any of the following occur: -- Increasing area of redness, swelling or pain -- Pus or fluid drainage from the skin or the eye -- Fever of 100.5 F (38 C) oral or 101.5 F (38.6 C) rectal for more than two days on antibiotics -- Eyelid swells shut -- Increasing headache or neck pain -- Unusual drowsiness or confusion -- Convulsion (seizure) Periorbital Cellulitis This is an infection of the tissues around the eye. It is most often due to an infected scratch or insect bite. Sometimes a sinus infection can cause this problem. Home Care: 1) Take your antibiotic medicine exactly as directed, until it is finished. 2) You may use acetaminophen (Tylenol) or ibuprofen (Motrin, Advil) to control pain, unless another pain medicine was prescribed. [NOTE: If you have liver disease or ever had a stomach ulcer, talk with your doctor before using these medicines.] Do not use ibuprofen in children under six months of age. Follow Up with your doctor or as advised by our staff. Return Promptly or contact your doctor if any of the following occur: -- Increasing swelling around the eye -- Increasing redness -- Fever of 100.5 (38 C) oral or 101.5 (38.6 C) rectal for more than two days on antibiotics Drug Abuse Use and abuse of such drugs as marijuana, amphetamines (speed, crank), cocaine, heroin or prescription pain medicines (Vicodin, codeine), sedatives and sleeping pills (Valium, Klonopin), PCP, mescaline and LSD may lead to addiction or dependence. Once this occurs, you are at greater risk for any of the following: Craving for the drug and unable to stop using the drug even though you think you want to stop (psychological dependence) Drug withdrawal symptoms if you stop taking the drug (physical dependence) Loss of your job or your family Arrest, conviction and skilled nursing sentence for possession of an illegal substance or for driving under the influence of such a substance Accidental injuries to yourself or others while you are under the influence of the drug (in a car or at home). HIV infection (much greater risk if you use IV drugs) Other sexually transmitted diseases (herpes, chlamydia, gonorrhea and others) Severe and fatal infection of the heart valves (if you use IV drugs) Stroke, heart attack, hepatitis B or C, kidney failure from overdose Home Care: Admit you have a drug problem. Ask for help from your family and close friends. Seek professional help. This could be in the form of individual psychotherapy or counseling or an outpatient, inpatient, or residential drug treatment program. Join a self-help group for drug abuse. Avoid friends who abuse drugs themselves or tempt you to continue abusing drugs. Eat a balanced diet and begin a regular exercise program. Follow Up with your doctor or as advised by our staff. Contact one of the resources below for help. National [place] on Alcoholism and Drug Dependence www.ncadd.org 569-737-IDSX Narcotics Anonymous www.na.org 443-845-5924 National Alcohol and Substance Abuse Information Center (for referral to treatment programs) www.[employer] 011-809-9664 Get Prompt Medical Attention if any of the following occur: Agitation, anxiety, unable to sleep Unintended weight loss (more than 10 to 15 pounds over 3 months) Seizure Chest pain Fever of 100.4F (38C) or higher, or as directed by your healthcare provider Excess drowsiness or inability to be awakened Shortness of breath Slow breathing under 8 breaths per minute Cough with colored sputum Redness, swelling or tenderness at an injection site Clindamycin Hydrochloride Oral capsule What is this medicine? CLINDAMYCIN (KLIN da MYE sin) is a lincosamide antibiotic. It is used to treat certain kinds of bacterial infections. It will not work for colds, flu, or other viral infections. How should I use this medicine? Take this medicine by mouth with a full glass of water. Follow the directions on the prescription label. You can take this medicine with food or on an empty stomach. If the medicine upsets your stomach, take it with food. Take your medicine at regular intervals. Do not take your medicine more often than directed. Take all of your medicine as directed even if you think your are better. Do not skip doses or stop your medicine early. Talk to your fire and explosion investigator regarding the use of this medicine in children. Special care may be needed. What side effects may I notice from receiving this medicine? Side effects that you should report to your doctor or health health and social care teacher as soon as possible: allergic reactions like skin rash, itching or hives, swelling of the face, lips, or tongue dark urine pain on swallowing redness, blistering, peeling or loosening of the skin, including inside the mouth unusual bleeding or bruising unusually weak or tired yellowing of eyes or skin Side effects that usually do not require medical attention (report to your doctor or health health and social care teacher if they continue or are bothersome): diarrhea itching in the rectal or genital area joint pain nausea, vomiting stomach pain What may interact with this medicine? chloramphenicol erythromycin kaolin products What if I miss a dose? If you miss a dose, take it as soon as you can. If it is almost time for your next dose, take only that dose. Do not take double or extra doses. Where should I keep my medicine? Keep out of the reach of children. Store at room temperature between 20 and 25 degrees C (68 and 77 degrees F). Throw away any unused medicine after the expiration date. What should I tell my health care provider before I take this medicine? They need to know if you have any of these conditions: kidney disease liver disease stomach problems like colitis an unusual or allergic reaction to clindamycin, lincomycin, or other medicines, foods, dyes like tartrazine or preservatives or trying to get breast-feeding What should I watch for while using this medicine? Tell your doctor or healthcare professional if your symptoms do not start to get better or if they get worse. Do not treat diarrhea with over the counter products. Contact your doctor if you have diarrhea that lasts more than 2 days or if it is severe and watery. You have been given the following additional information: Cellulitis, Facial Carlotta-Orbital Cellulitis Drug Abuse Clindamycin Hydrochloride Oral capsule (Electronically signed by Jann Reddy MD 02/06/2017 8:31)
--- NOTE | 2017-02-06 08:31 | ED MED RECONCILIATION SUMMARY ---
Patient: RAMA DAVIS Medication Reconciliation Report [facility] VisitID: [id number] [address] [place] [address] 36y, M Registration Date/Time: 02/05/2017 Weight: 81.6 kg Height/Length: 73 in. BMI: 23.7 ALLERGIES: Penicillins The patient's Home Medications are listed below: CONTINUE TAKING THE FOLLOWING MEDICATIONS: Albuterol prin Amlodipine 20 mg, q day Citalopram Hydrobromide Oral (20 mg) 1 tablet, day Creon Oral (6000 unit) 1 capsule, with meals Levothroid Oral 25 mcg, daily Lisinopril Oral 20 mg, daily Methadone HCl Oral 50mg, daily, last dose: yesterday The source(s) of the original Home Medication information: Not obtained. The following Medications were given to the patient in the Emergency Department: IV NS IV Fluids bolus 0, then 1000 mL/hr, administered: 02/05/2017 9:24:00 PM Vancomycin [IVPB] IVPB bolus 0, then 1 gm 200 mL/hr, administered: 02/05/2017 9:25:00 PM Dilaudid [IVP] IVP 0.5 mg, administered: 02/05/2017 9:34:00 PM The following Medications were prescribed to the patient: Clindamycin 300 mg: take 1 capsule orally every 6 hours for 10 days. No refill. -- Jann Reddy MD
--- NOTE | 2017-02-06 08:31 | ED MAR SUMMARY ---
..... Medication Administration Record [facility] [address] [place] [address] Patient: RAMA DAVIS Visit ID: [id number] 36y, M Weight: 81.6 kg Height/Length: 73 in BMI: 23.7 ALLERGIES: Penicillins Start 21:24 02/05/2017 William Veliz R.N., Stop 22:31 02/05/2017 William Veliz R.N. Medication Administered: IV NS (SALINE), Dose: IV Fluids over 1 hour(s), Rate: 1000 mL/hr, Dispensed: 1000 mL bag, Site: #1 right AC. Medication Ordered: IV NS : initial bolus 1000 mL (1000 mL/hr), then 500 mL/hr for X2 (NOW). Start 21:25 02/05/2017 William Veliz R.N., Stop 23:02/05/2017 William Veliz R.N. Medication Administered: VANCOMYCIN [IVPB], Dose: 1 gm IVPB over 2 hour(s), Rate: 200 mL/hr, Dispensed: 200 mL bag, Site: #1 right AC. Medication Ordered: Vancomycin IV 1 gm/200mL (NOW). Given 21:34 02/05/2017 William Veliz R.N. Medication Administered: DILAUDID [IVP] (HYDROMORPHONE HCL PF), Dose: 0.5 mg IVP over 2 minute(s), Site: #1 right AC. Medication Ordered: Dilaudid IV 0.5 mg (HIGH ALERT MEDICATION, NOW).
--- NOTE | 2017-02-06 08:31 | ED MED RECONCILIATION SUMMARY ---
Patient: RAMA DAVIS Medication Reconciliation Report [facility] VisitID: [id number] [address] [place] [address] 36y, M Registration Date/Time: 02/05/2017 Weight: 81.6 kg Height/Length: 73 in. BMI: 23.7 ALLERGIES: Penicillins The patient's Home Medications are listed below: CONTINUE TAKING THE FOLLOWING MEDICATIONS: Albuterol prin Amlodipine 20 mg, q day Citalopram Hydrobromide Oral (20 mg) 1 tablet, day Creon Oral (6000 unit) 1 capsule, with meals Levothroid Oral 25 mcg, daily Lisinopril Oral 20 mg, daily Methadone HCl Oral 50mg, daily, last dose: yesterday The source(s) of the original Home Medication information: Not obtained. The following Medications were given to the patient in the Emergency Department: IV NS IV Fluids bolus 0, then 1000 mL/hr, administered: 02/05/2017 9:24:00 PM Vancomycin [IVPB] IVPB bolus 0, then 1 gm 200 mL/hr, administered: 02/05/2017 9:25:00 PM Dilaudid [IVP] IVP 0.5 mg, administered: 02/05/2017 9:34:00 PM The following Medications were prescribed to the patient: Clindamycin 300 mg: take 1 capsule orally every 6 hours for 10 days. No refill. -- Jann Reddy MD
== END 2017-02-05 23:27 | disposition home or self-care (01) ==
LOC: ED SRH 20:00
DX: L03.211 Cellulitis of face (principal); F19.10 Other psychoactive substance abuse, uncomplicated; K21.9 Gastro-esophageal reflux disease without esophagitis; I10 Essential (primary) hypertension; J45.909 Unspecified asthma, uncomplicated; Z79.899 Other long term (current) drug therapy; Z88.0 Allergy status to penicillin
CPT/HCPCS: 90004; 90100; 91320; 92031; 92235; 92530; 92760; 92761; 92762; 92763; 92764; 92765; 92766; 92767; 93140; 95059

== ENCOUNTER 2017-02-07 19:13 | Emergency (ER) | payer BC, OTHER ==
--- NOTE | 2017-02-07 21:03 | ED CLINICAL REPORT ---
Clinical Report - Physicians/Mid Levels [facility] [address] [place] [address] 02/07/2017 19:14 Patient: RAMA DAVIS Time Seen: 19:24; upon arrival, initial patient contact, initial documentation, patient care assumed. Arrived- By private vehicle. Historian- patient. RETURN VISIT: recently seen in this ED by another ED physician. Seen now for the same problem as before. HISTORY OF PRESENT ILLNESS Chief Complaint: LESION, BOIL and TENDER AREA. This started about 4 days ago and is still present. Not itchy or burning. It is described as painful. It has been located on the face and left lower extremity. No cause has been identified. Similar symptoms previously: None. Recent medical care: The patient was seen recently at this facility in the emergency department. ( x2 days ago txed here, rx clinda, L eye better, R cheek and L lower leg worse). REVIEW OF SYSTEMS No fever or difficulty breathing. All systems otherwise negative, except as recorded above. PAST HISTORY See nurses notes. PROBLEMS: Substance Abuse. Cancer. Pancreatitis. Cellulitis. Asthma. Lumbar Strain. Hyperlipidemia. Depression. Anxiety Reaction. Gastroesophageal Reflux. Cardiovascular Risk Factors. Chest Wall Pain. Atypical Chest Pain. Pedal Edema. Sprain. Knee Injury. Gastroenteritis. Hypertension. Thyroid Disease. Immunizations. Cholesterol problems . Htn. --19:23 Nils Myers R.N. Leukocytosis [RuleOut]. Abdominal Pain [RuleOut]. Alcohol Withdrawal [RuleOut]. Pancreatitis [RuleOut]. --19:23 Nils Myers R.N. ADDITIONAL SURGERIES: Ca bx in the mouth. Fracture Repair. Wrist rt, knee rt. --19:23 Nils Myers R.N. SOCIAL HISTORY Heavy tobacco smoker. Heavy alcohol use. Patient is a longstanding and recovering alcoholic. History of heavy drug use methadone: narcotics, methamphetamines. No recent travel. Is a local resident. FAMILY HISTORY Negative. ADDITIONAL NOTES The nursing notes have been reviewed with agreement regarding the chief complaint, HPI, ROS, PMH and patient medications and allergies. PHYSICAL EXAM Vital Signs: 02/07/2017 19:18 BP: 147/101. HR: 88. RR: 18. O2 saturation: 100%. Temp: 98.2 F. Pain level now: 06/27. Have been reviewed as abnormal and appear to be correct. Hypertensive. Heart rate normal. Respiratory rate normal. Temperature normal. Oxygen saturation normal. Appearance: Alert. Oriented X3. No acute distress. Anxious. Eyes: Pupils equal, round and reactive to light. Conjunctivae and eyelids normal. Neck: Neck supple. CVS: Normal heart rate and rhythm. Heart sounds normal. Respiratory: No respiratory distress. Breath sounds normal. Chest nontender. Skin: Skin warm and dry. Abnormal skin color. No rash. Normal skin turgor. (scabbed swollen area with mild erythema to R cheek, swollen erythema area around L periorbital, L lower leg swollen with erythema, weeping clear fluid, all areas tender and warm). Extremities: Abnormal external inspection. Extremity tenderness. Moderate non-pitting edema of the left lower extremity involving the lower leg. No upper extremity edema. No calf tenderness. Neuro: Oriented X 3. No motor deficit. No sensory deficit. LABS, X-RAYS, AND EKG Laboratory Tests: CBC w Diff: (MARINE: 02/07/2017 19:55) ( MsgRcvd 02/07/2017 20:09) Final results Test Result Flag Units (Reference) WHITE BLOOD COUNT 12.1 H K/uL (4.5-11.5) RED BLOOD COUNT 4.32 L M/uL (4.50-5.90) HEMOGLOBIN 12.7 L gm/dL (13.5-17.5) HEMATOCRIT 38.2 L % (41.0-53.0) MEAN CELL VOLUME 88 fL (80-100) MEAN CORPUSCULAR HGB 29 pg (26-34) MEAN CORPUSCULAR HGB CONC 33 g/dL (31-37) RED CELL DISTRIBUTION WIDTH 13.0 % (11.6-14.8) PLATELET COUNT 211 K/uL (150-400) NEUTROPHIL % 82.1 H % (50-75) LYMPH % 10.2 L % (25-40) MONO % 6.2 % (3-14) EOSINOPHIL % 1.4 % (0-4) BASOPHIL % 0.1 % (0-2) Lactate, Serum: (MARINE: 02/07/2017 19:55) ( MsgRcvd 02/07/2017 20:43) Final results Test Result Flag Units (Reference) LACTIC ACID 2.8 H mmol/L (0.4-2.0) [id number]: (MARINE: 02/07/2017 19:55) ( MsgRcvd 02/07/2017 20:44) Final results Test Result Flag Units (Reference) PROCALCITONIN <0.5 ng/mL (0-0.5) PCT Concentration: Interpretation : Risk/option for action PCT <=0.5 ng/mL : Systemic : Low risk forinfection(sepsis): progression to severeis not likely. : systemic infection.Local bacterial : CAUTION-PCT levelsinfection is : below 0.5 ng/mL do notpossible. : exclude an infection,because localizedinfections (withoutsystemic signs) may beassociated with suchlow levels. If PCT ismeasured very earlyafter a bacterialchallenge (usually <6hours), these valuesmay still be low. Inthis case PCT shouldbe re-assessed 6-24hours later. PCT >0.5 and : Systemic infection: Moderate risk for<= 2 ng/mL : (sepsis) is : progression to severepossible, but : systemic infection.other conditions : The patient should beare known to : closely monitoredelevate PCT. : both clinically andby re-assessing PCTwithin 6-24 hours. PCT > 2 ng/mL : Systemic infection: High risk for(sepsis) is likely: progression to severeunless other : systemic infection.causes are known. : PCT >= 10 ng/mL : Important systemic: High likelihood ofinflammatory : severe sepsis orresponse, almost : septic shock.exclusively due to:severe bacterial :sepsis or septic :shock. : CMP: (MARINE: 02/07/2017 19:55) ( MsgRcvd 02/07/2017 20:21) Final results Test Result Flag Units (Reference) GLUCOSE 110 mg/dL (70-110) BUN 10 mg/dL (7-18) CREATININE 1.1 mg/dL (0.6-1.3) Estimated GFR >60 mL/min Estimated GFR- >60 mL/min Note: Persistent reduction over 3 months in eGFR<60 mL/min/1.73 m2 defines CKD. Patients with eGFR values>=60 mL/min/1.73 m2 may also have CKD if evidence ofpersistent proteinuria. Additional information may be foundat www.kidney.org. SODIUM 137 mmol/L (136-145) POTASSIUM 4.0 mmol/L (3.5-5.1) CHLORIDE 99 mmol/L (98-107) CARBON DIOXIDE 30 mmol/L (21-32) CALCIUM 8.8 mg/dL (8.5-10.1) TOTAL PROTEIN 6.7 g/dL (6.4-8.2) ALBUMIN 3.4 g/dL (3.3-5.0) BILIRUBIN, TOTAL 0.2 mg/dL (0.0-1.0) ALKALINE PHOSPHATASE 98 U/L (46-116) AST (SGOT) 15 U/L (15-37) ALT (SGPT) 24 U/L (12-78) Culture, Wound Deep: (MARINE: 02/07/2017 19:55) ( MsgRcvd 02/07/2017 20:29) IP SPECIMEN DESCRIPTION: L LOWER LEG Test Result Flag Units (Reference) GRAM STAIN, WOUND, DEEP EPITHELIAL CELLS: FEW GRAM POSITIVE COCCI: RARE WHITE BLOOD CELLS: NONE -- LEFT LOWER LEG . PROGRESS AND PROCEDURES Course of Care: 19:42 02/07/17. er chart from 02/05 reviewed Lactic Acid 1.[address] Face: IMPRESSION: 1. Mild to moderate soft tissue and left orbit and face, consistent with periorbital cellulitis. 2. Mild soft tissue swelling over the right face. 3. No evidence of orbital cellulitis and post septal orbits appear normal. The study was interpreted contemporaneously by me and discussed with the radiologist. 2049. pt wanting pain med, and stated we were being stingy with them and we only gave an nsaid, and not true pain med and it barely touched his pain, also stating he was treated for infection like this before [facility] and they were giving him $1,000 abx and he knew there was something cheaper and all we want to do is get money, then asking me if I heard about President [place] trying to pass some law to stop people from suing medical people, pt being sharp and rude, and every time I tried to speak he would interrupt me and he kept referring to me and the staff as 'you people' telling me she used thermometer to check his temp and he is now running a fever of 100 explained labs were basically the same, white count down, lactate up L eye actually looking better, less swelling and erythema tx plan and agreed to dc pt and continue to try outpatient therapy 22:30 02/07/17. orders were placed at 2113 for temp recheck to verify what spouse was reporting, do not see any more vs charted. 02/07/2017 20:00 BP: 137/97. HR: 100. RR: 18. O2 saturation: 99%. Vital Signs: have been reviewed as abnormal and appear to be correct. Hypertensive. Heart rate normal. Respiratory rate normal. Patient counseled in person regarding the patient's stable condition, test results and diagnosis. 20:50. Differential Diagnosis: Other possible considerations: substance abuse, cellulitis, sepsis, mrsa, abscess. Above considerations are based on history, physical exam, reassessment and laboratory data. Differential diagnosis was discussed with patient. Disposition: Discharged home in good and improved condition (21:03). Condition: good and stable. CLINICAL IMPRESSION Cellulitis of the left periorbital area, right cheek area and left lower leg. INSTRUCTIONS Warnings: GENERAL WARNINGS: Return or contact your physician immediately if your condition worsens or changes unexpectedly, if not improving as expected, or if other problems arise. Specifically return if problem worsens. Prescription Medications: Bactrim DS 800 mg / 160 mg: take 1 tablet orally every day for 10 days. No refill. [place] 5 mg / 325 mg tablets: take 1 to 2 orally every 6 hours as needed for pain. Dispense fifteen (15). No refills. Substitution is permissible. Motrin 800 mg tablets: take 1 tablet orally every 8 hours as needed for pain. Dispense thirty (30). No refills. Substitution is permissible. Follow-up: Follow up with your doctor tomorrow even if well and for wound check. Call for an appointment. Summary of care provided to patient. Screening today revealed the patient's blood pressure to be in the hypertensive range. The patient should follow up with a primary care provider for blood pressure management. Understanding of the discharge instructions verbalized by patient. (Electronically signed by Milagros Lux A.R.N.P. 02/07/2017 22:31)
--- NOTE | 2017-02-07 21:03 | ED NURSING NOTES ---
Clinical Report - Nurses [facility] [address] [place] [address] 02/07/2017 19:14 Patient: MERRICK DAVIS TRIAGE Triage time 19:18. Acuity: LEVEL 4. Chief Complaint: BOIL and TENDER AREA and . Merrick states he experienced a splash from his septic tank and ended up with sores afterwards, sores appeared about 5 days ago; began Bactrim about 3 days ago. Says he is not getting better. Merrick says the sore on his L side of face his draining, but the one on the R side of face and knee are not draining. Alert. No acute distress. SEPSIS SCREEN: Sepsis Screen: negative. Negative (no infection suspected/documented). --19:25 Nils Myers R.N. 19:18 02/07/17. BP: 147/101 (regular adult cuff) taken on the left arm, via an automated monitor, while lying. HR: 88 (normal rate). RR: 18 (regular, unlabored and normal). O2 saturation: 100% on room air. Temp: 98.2 F (oral). Pain level now: 06/27. --19:25 Nils Myers R.N. Weight: 83 kg stated. Height/Length: 73 inches Per Patient. BMI: 24.1. --19:21 Nils Myers R.N. Medications Albuterol prin. Amlodipine 20 mg, q day. Citalopram Hydrobromide Oral (Tablet 20 mg) 1 tablet, day. Creon Oral (Capsule Delayed Release Particles 6000 unit) 1 capsule, with meals. Levothroid Oral 25 mcg, daily. Lisinopril Oral 20 mg, daily. Methadone HCl Oral 50mg, daily, last dose yesterday. --19:22 Nils Myers R.N. Medication/allergy information source: the patient. --19:25 Nils Myers R.N. Allergies Penicillins. --19:22 Nils Myers R.N. History Arrived by private vehicle. Historian: patient. Primary physician (Dr. Das in [place]). Reported as located on the face and left leg. Onset. (about 5 - 6 days ago). It is described as mildly itchy and severely painful. He has had chills. Reports muscle aches and experiencing sweating episodes. Not burning. 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 PAST MEDICAL HX: Immunizations: has received tetanus within 5 years; seasonal influenza. SOCIAL HX: Current every day heavy tobacco smoker (cigarette)- 1 pack per day. No alcohol use or drug use. He has not traveled outside the [place] The patient was exposed to MRSA. ABUSE ASSESSMENT: Abuse assessment: The patient was asked "Do you feel safe in your home?" and "Has anyone hurt you or threatened to hurt you?". No report of abuse. SELF HARM ASSESSMENT: A self harm assessment was performed. The patient answered "no" to the question "Do you have thoughts of harming or killing yourself?" and "Have you recently had thoughts about harming or killing others?". FALL RISK ASSESSMENT: Fall risk assessment completed. No fall risk identified. NUTRITIONAL RISK ASSESSMENT: The nutritional risk assessment revealed no deficiencies. FUNCTIONAL ASSESSMENT: Functional assessment: no impairments noted. LEARNING NEEDS ASSESSMENT: The learning needs assessment revealed no barriers. SKIN INTEGRITY ASSESSMENT: Skin integrity risk assessment completed. No skin integrity risk identified. --19:25 Nils Myers R.N. PROBLEMS: Substance Abuse. Cancer. Pancreatitis. Cellulitis. Asthma. Lumbar Strain. Hyperlipidemia. Depression. Anxiety Reaction. Gastroesophageal Reflux. Cardiovascular Risk Factors. Chest Wall Pain. Atypical Chest Pain. Pedal Edema. Sprain. Knee Injury. Gastroenteritis. Hypertension. Thyroid Disease. Immunizations. Cholesterol problems . Htn. --19:23 Nils Myers R.N. Leukocytosis [RuleOut]. Abdominal Pain [RuleOut]. Alcohol Withdrawal [RuleOut]. Pancreatitis [RuleOut]. --19:23 Nils Myers R.N. ADDITIONAL SURGERIES: Ca bx in the mouth. Fracture Repair. Wrist rt, knee rt. --19:23 Nils Myers R.N. Assessment GENERAL / NEURO / PSYCH: Alert. Oriented X 4. Appears in no acute distress. Patient appears calm and cooperative. ( Limping gait.). RESPIRATORY: Respirations not labored. SKIN: Skin is warm and dry. --19:25 Nils Myers R.N. Interventions ID band on patient. To treatment room. --19:25 Nils Myers R.N. PHYSICAL ASSESSMENT Ambulatory to room. GENERAL / NEURO / PSYCH: Alert. Appears in pain. Viktor Coma Scale: 15- eyes open spontaneously (4); best verbal response- oriented x 4 (5); best motor response- obeys commands (6). Mood/affect abnormal (Irritated). No motor deficit. No sensory deficit. Oriented X 4. HEENT: Facial swelling present involving the area around the left eye Lesions noted near eye. ( Crusted lesion noted to R side of face.). RESPIRATORY: No respiratory distress. Respirations not labored. Breath sounds within normal limits. CVS: Heart sounds within normal limits. Pulses: right radial 2+, left radial 2+, right dorsalis pedis 2+, left dorsalis pedis 2+, right posterior tibial 2+ and left posterior tibial 2+. Capillary refill less than 2 seconds. SKIN: Skin is warm and dry. Large area of erythema on the face and left leg- associated with swelling, tenderness and increased warmth. ( Lesions noted to areas of redness of face and leg. Lesion on lower L leg is draining. Merrick reports lesions on face have been draining.). --20:08 Nils Myers R.N. NURSING PROGRESS NOTES The initial plan of care for this patient has been created This plan of care was discussed with the patient. Patient gowned. Reassurance given to the patient. Two patient identifiers checked. Call light placed in reach. Side rails up x 1. Bed placed in lowest position. Brakes of bed on. Patient ready for evaluation- ED physician and SOCIAL WORK MANAGER notified. --19:26 Nils Myers R.N. 19:57 02/07/2017 Site #1 started via IV in the right antecubital space with an 20g angiocath, with aseptic technique and good blood return; one attempt. Blood drawn: rainbow set and cultures x1. Labeled in the presence of the patient and sent to the lab. Saline lock flushed with 10 mL saline. --19:57 Nils Myers R.N. 20:05 02/07/2017 Started 1 gm of Vancomycin IVPB in bag #1 200 mL; at 200 mL/hr over 1 hour(s) via site #1; Allergies verified and confirmed 5 rights. IV patency established. IV site checked: no pain, redness, or swelling. IV flushed thoroughly pre- and post-medication administration. Completed per protocol. --20:05 Nils Myers R.N. 20:02/07/2017 Toradol IVP 30 mg given over 30 minute(s) via site #1. Allergies verified and confirmed 5 rights. IV patency established. IV site checked: no pain, redness, or swelling. IV flushed thoroughly pre- and post-medication administration. IVP given by RN. --20:05 Nils Myers R.N. Patient ID band checked for patient name and birthdate: patient confirmed. Wound to left leg swabbed for aerobic culture; collected by tech. --20:09 Nils Myers R.N. 20:00 02/07/17. BP: 137/97 (regular adult cuff) taken on the left arm, via an automated monitor, while lying. HR: 100 (normal rate). RR: 18 (regular, unlabored and normal). O2 saturation: 99% on room air. --20:35 Nils Myers R.N. The patient is calm. RESPIRATORY: No respiratory distress. SKIN: Skin is warm and dry. --20:35 Nils Myers R.N. 22:00 02/07/2017 Zofran (Ondansetron HCl) IVP 4 mg given over 2 minute(s) via site #1. Allergies verified and confirmed 5 rights. IV patency established. IV site checked: no pain, redness, or swelling. IV flushed thoroughly pre- and post-medication administration. IVP given by RN. --05:43 Bernardo Arceo R.N. 22:00 02/07/2017 Acetaminophen (APAP) PO Tablets 1000 mg given. Allergies verified and confirmed 5 rights. --05:44 Bernardo Arceo R.N. 22:10 02/07/2017 Dilaudid (HYDROmorphone HCl PF) IM 1 mg given. Given in the right gluteus delfina. Allergies verified, confirmed 5 rights and sedative warning given to the patient. --05:46 Bernardo Arceo R.N. 22:15 02/07/2017 Site #1 removed upon discharge. Catheter intact. Manual pressure, bandaid and bandage applied. --05:47 Bernardo Arceo R.N. DISPOSITION / DISCHARGE No learning barriers present. Discharge instructions provided and reviewed with the patient. Reviewed medication(s) (prescription given to pt). Reviewed referral to family practice. Patient verbalized understanding. Written instructions provided in [place]. The patient was discharged by the physician. He was discharged home and accompanied by md physician dermatologist. He left the Emergency Department ambulatory and via private vehicle. --05:37 Bernardo Arceo R.N. Departure time: 2220. --05:38 Bernardo Arceo R.N. 22:15 02/07/17. BP: 149/90. HR: 94. RR: 16. O2 saturation: 98% on room air. Temp: 98.9 F. Pain level now: 02/25. --05:41 Bernardo Arceo R.N. Locked/Released at 02/08/2017 5:48 by Bernardo Arceo R.N.
--- NOTE | 2017-02-07 21:03 | ED ORDER SUMMARY ---
..... Patient: RAMA DAVIS OrderSheet [facility] VisitID: [id number] [address] [place] [address] 36y, M Registration Date/Time: 02/07/2017 ORDER SHEET Weight: 83.0 kg (stated) Allergies: Penicillins GENERAL ORDERS: Blood Culture (Yes) (clindamycin) Urgent (19:34 02/07/2017 HBivens A.R.N.P.) (Ack 19:36 SRedmond) (19:57 JDeElena R.N.) Culture, Wound Deep (Leg) (L lower leg) Urgent (19:35 02/07/2017 HBivens A.R.N.P.) (Ack 19:36 SRedmond) (19:57 JDeElena R.N.) CBC w Diff Urgent (19:35 02/07/2017 HBivens A.R.N.P.) (Ack 19:36 SRedmond) (19:57 JDeElena R.N.) CMP Urgent (19:35 02/07/2017 HBivens A.R.N.P.) (Ack 19:36 SRedmond) (19:57 JDeElena R.N.) Lactate, Serum Urgent (19:35 02/07/2017 HBivens A.R.N.P.) (Ack 19:36 SRedmond) (19:57 JDeElena R.N.) PCT (Procalcitonin) Urgent (19:35 02/07/2017 HBivens A.R.N.P.) (Ack 19:36 SRedmond) (19:57 JDeElena R.N.) Vitals (Temp) (21:14 02/07/2017 HBivens A.R.N.P.) (Ack 21:15 SRedmond) (5:41 JRomanelli R.N.) MEDICATION ORDERS: Dilaudid IM 1 mg (HIGH ALERT MEDICATION, NOW) (21:02 02/07/2017 HBivens A.R.N.P.) (Ack 21:12 JDeElena R.N.) (5:46 JRomanelli R.N.) Acetaminophen PO 1,000 mg (NOW) (21:14 02/07/2017 HBivens A.R.N.P.) (5:44 omancarmen R.N.) IV FLUIDS: Vancomycin IV 1 gm/200mL (NOW) (19:35 02/07/2017 HBivens A.R.N.P.) (Ack 19:36 JDeElena R.N.) (20:05 JDeElena R.N.) IV Saline Lock (19:35 02/07/2017 HBivens A.R.N.P.) (Ack 19:36 JDeElena R.N.) (19:57 JDeElena R.N.) Toradol IV 30 mg (NOW) (19:47 02/07/2017 HBivens A.R.N.P.) (Ack 19:57 JDeElena R.N.) (20:05 JDeElena R.N.) Zofran IV 4 mg (NOW) (21:02 02/07/2017 HBivens A.R.N.P.) (Ack 21:12 JDeElena R.N.) (5:43 Frandy R.N.) ORDER SHEET NOTES: [Electronically signed by Milagros LuxR.N.P. (22:31 02/07/2017)] [Electronically signed by Bernardo Arceo R.N. (05:48 02/08/2017)] [Electronically locked/signed by Bernardo Arceo R.N. (05:48 02/08/2017)]
--- NOTE | 2017-02-07 21:03 | ED ORDER SUMMARY ---
..... Patient: RAMA DAVIS OrderSheet [facility] VisitID: [id number] [address] [place] [address] 36y, M Registration Date/Time: 02/07/2017 ORDER SHEET Weight: 83.0 kg (stated) Allergies: Penicillins GENERAL ORDERS: Blood Culture (Yes) (clindamycin) Urgent (19:34 02/07/2017 HBivens A.R.N.P.) (Ack 19:36 SRedmond) (19:57 JDeElena R.N.) Culture, Wound Deep (Leg) (L lower leg) Urgent (19:35 02/07/2017 HBivens A.R.N.P.) (Ack 19:36 SRedmond) (19:57 JDeElena R.N.) CBC w Diff Urgent (19:35 02/07/2017 HBivens A.R.N.P.) (Ack 19:36 SRedmond) (19:57 JDeElena R.N.) CMP Urgent (19:35 02/07/2017 HBivens A.R.N.P.) (Ack 19:36 SRedmond) (19:57 JDeElena R.N.) Lactate, Serum Urgent (19:35 02/07/2017 HBivens A.R.N.P.) (Ack 19:36 SRedmond) (19:57 JDeElena R.N.) PCT (Procalcitonin) Urgent (19:35 02/07/2017 HBivens A.R.N.P.) (Ack 19:36 SRedmond) (19:57 JDeElena R.N.) Vitals (Temp) (21:14 02/07/2017 HBivens A.R.N.P.) (Ack 21:15 SRedmond) (5:41 JRomanelli R.N.) MEDICATION ORDERS: Dilaudid IM 1 mg (HIGH ALERT MEDICATION, NOW) (21:02 02/07/2017 HBivens A.R.N.P.) (Ack 21:12 JDeElena R.N.) (5:46 JRomanelli R.N.) Acetaminophen PO 1,000 mg (NOW) (21:14 02/07/2017 HBivens A.R.N.P.) (5:44 omancarmen R.N.) IV FLUIDS: Vancomycin IV 1 gm/200mL (NOW) (19:35 02/07/2017 HBivens A.R.N.P.) (Ack 19:36 JDeElena R.N.) (20:05 JDeElena R.N.) IV Saline Lock (19:35 02/07/2017 HBivens A.R.N.P.) (Ack 19:36 JDeElena R.N.) (19:57 JDeElena R.N.) Toradol IV 30 mg (NOW) (19:47 02/07/2017 HBivens A.R.N.P.) (Ack 19:57 JDeElena R.N.) (20:05 JDeElena R.N.) Zofran IV 4 mg (NOW) (21:02 02/07/2017 HBivens A.R.N.P.) (Ack 21:12 JDeElena R.N.) (5:43 Frandy R.N.) ORDER SHEET NOTES: [Electronically signed by Milagros LuxR.N.P. (22:31 02/07/2017)] [Electronically signed by Bernardo Arceo R.N. (05:48 02/08/2017)] [Electronically locked/signed by Bernardo Arceo R.N. (05:48 02/08/2017)]
--- NOTE | 2017-02-08 05:48 | ED MED RECONCILIATION SUMMARY ---
Patient: RAMA DAVIS Medication Reconciliation Report [facility] VisitID: [id number] [address] [place] [address] 36y, M Registration Date/Time: 02/07/2017 Weight: 83.0 kg Height/Length: 73 in. BMI: 24.1 ALLERGIES: Penicillins The patient's Home Medications are listed below: THE FOLLOWING MEDICATIONS NEED TO BE RECONCILED: Albuterol prin Amlodipine 20 mg, q day Citalopram Hydrobromide Oral (20 mg) 1 tablet, day Creon Oral (6000 unit) 1 capsule, with meals Levothroid Oral 25 mcg, daily Lisinopril Oral 20 mg, daily Methadone HCl Oral 50mg, daily, last dose: yesterday The source(s) of the original Home Medication information: patient The following Medications were given to the patient in the Emergency Department: Vancomycin [IVPB] IVPB bolus 0, then 1 gm 200 mL/hr, administered: 02/07/2017 8:05:00 PM Toradol [IVP] IVP 30 mg, administered: 02/07/2017 8:05:00 PM Zofran [IVP] IVP 4 mg, administered: 02/07/2017 10:00:00 PM Acetaminophen [PO] PO 1000 mg, administered: 02/07/2017 10:00:00 PM Dilaudid [IM] IM 1 mg, administered: 02/07/2017 10:10:00 PM The following Medications were prescribed to the patient: Bactrim DS 800 mg / 160 mg: take 1 tablet orally every day for 10 days. No refill. -- Milagros Lux A.R.N.PRita [place] 5 mg / 325 mg tablets: take 1 to 2 orally every 6 hours as needed for pain. Dispense fifteen (15). No refills. Substitution is permissible. -- Milagros Lux A.R.N.PRita Motrin 800 mg tablets: take 1 tablet orally every 8 hours as needed for pain. Dispense thirty (30). No refills. Substitution is permissible. -- Milagros Lux A.R.N.P.
--- NOTE | 2017-02-08 05:48 | ED MAR SUMMARY ---
..... Medication Administration Record [facility] [address] [place] [address] Patient: RAMA DAVIS Visit ID: [id number] 36y, M Weight: 83.0 kg Height/Length: 73 in BMI: 24.1 ALLERGIES: Penicillins Start 20:02/07/2017 Nils Myers R.N. Medication Administered: VANCOMYCIN [IVPB], Dose: 1 gm IVPB over 1 hour(s), Rate: 200 mL/hr, Dispensed: 200 mL bag, Site: #1 right AC. Medication Ordered: Vancomycin IV 1 gm/200mL (NOW). Given 20:02/07/2017 Nils Myers R.N. Medication Administered: TORADOL [IVP], Dose: 30 mg IVP over 30 minute(s), Site: #1 right AC. Medication Ordered: Toradol IV 30 mg (NOW). Given :02/07/2017 Bernardo Arceo R.N. Medication Administered: ZOFRAN [IVP] (ONDANSETRON HCL), Dose: 4 mg IVP over 2 minute(s), Site: #1 right AC. Medication Ordered: Zofran IV 4 mg (NOW). Given :02/07/2017 Bernardo Arceo R.N. Medication Administered: ACETAMINOPHEN [PO] (APAP), Dose: 1000 mg Tablets PO. Medication Ordered: Acetaminophen PO 1,000 mg (NOW). Given 22:02/07/2017 Bernardo Arceo R.NRita Medication Administered: DILAUDID [IM] (HYDROMORPHONE HCL PF), Dose: 1 mg IM. Medication Ordered: Dilaudid IM 1 mg (HIGH ALERT MEDICATION, NOW).
--- NOTE | 2017-02-08 05:48 | ED MED RECONCILIATION SUMMARY ---
Patient: RAMA DAVIS Medication Reconciliation Report [facility] VisitID: [id number] [address] [place] [address] 36y, M Registration Date/Time: 02/07/2017 Weight: 83.0 kg Height/Length: 73 in. BMI: 24.1 ALLERGIES: Penicillins The patient's Home Medications are listed below: THE FOLLOWING MEDICATIONS NEED TO BE RECONCILED: Albuterol prin Amlodipine 20 mg, q day Citalopram Hydrobromide Oral (20 mg) 1 tablet, day Creon Oral (6000 unit) 1 capsule, with meals Levothroid Oral 25 mcg, daily Lisinopril Oral 20 mg, daily Methadone HCl Oral 50mg, daily, last dose: yesterday The source(s) of the original Home Medication information: patient The following Medications were given to the patient in the Emergency Department: Vancomycin [IVPB] IVPB bolus 0, then 1 gm 200 mL/hr, administered: 02/07/2017 8:05:00 PM Toradol [IVP] IVP 30 mg, administered: 02/07/2017 8:05:00 PM Zofran [IVP] IVP 4 mg, administered: 02/07/2017 10:00:00 PM Acetaminophen [PO] PO 1000 mg, administered: 02/07/2017 10:00:00 PM Dilaudid [IM] IM 1 mg, administered: 02/07/2017 10:10:00 PM The following Medications were prescribed to the patient: Bactrim DS 800 mg / 160 mg: take 1 tablet orally every day for 10 days. No refill. -- Milagros Lux A.R.N.PRita [place] 5 mg / 325 mg tablets: take 1 to 2 orally every 6 hours as needed for pain. Dispense fifteen (15). No refills. Substitution is permissible. -- Milagros Lux A.R.N.PRita Motrin 800 mg tablets: take 1 tablet orally every 8 hours as needed for pain. Dispense thirty (30). No refills. Substitution is permissible. -- Milagros Lux A.R.N.P.
--- NOTE | 2017-02-08 05:48 | ED MAR SUMMARY ---
..... Medication Administration Record [facility] [address] [place] [address] Patient: RAMA DAVIS Visit ID: [id number] 36y, M Weight: 83.0 kg Height/Length: 73 in BMI: 24.1 ALLERGIES: Penicillins Start 20:02/07/2017 Nils Myers R.N. Medication Administered: VANCOMYCIN [IVPB], Dose: 1 gm IVPB over 1 hour(s), Rate: 200 mL/hr, Dispensed: 200 mL bag, Site: #1 right AC. Medication Ordered: Vancomycin IV 1 gm/200mL (NOW). Given 20:02/07/2017 Nils Myers R.N. Medication Administered: TORADOL [IVP], Dose: 30 mg IVP over 30 minute(s), Site: #1 right AC. Medication Ordered: Toradol IV 30 mg (NOW). Given :02/07/2017 Bernardo Arceo R.N. Medication Administered: ZOFRAN [IVP] (ONDANSETRON HCL), Dose: 4 mg IVP over 2 minute(s), Site: #1 right AC. Medication Ordered: Zofran IV 4 mg (NOW). Given :02/07/2017 Bernardo Arceo R.N. Medication Administered: ACETAMINOPHEN [PO] (APAP), Dose: 1000 mg Tablets PO. Medication Ordered: Acetaminophen PO 1,000 mg (NOW). Given 22:02/07/2017 Bernardo Arceo R.NRita Medication Administered: DILAUDID [IM] (HYDROMORPHONE HCL PF), Dose: 1 mg IM. Medication Ordered: Dilaudid IM 1 mg (HIGH ALERT MEDICATION, NOW).
--- NOTE | 2017-02-08 05:48 | ED DISCHARGE INSTRUCTIONS ---
Patient: RAMA DAVIS General Instructions [facility] VisitID: [id number] [place] [address] 36y, M Registration Date/Time: 02/07/2017 Cellulitis of the left periorbital area, right cheek area and left lower leg. INSTRUCTIONS Warnings: GENERAL WARNINGS: Return or contact your physician immediately if your condition worsens or changes unexpectedly, if not improving as expected, or if other problems arise. Specifically return if problem worsens. Prescription Medications: Bactrim DS 800 mg / 160 mg: take 1 tablet orally every day for 10 days. No refill. [place] 5 mg / 325 mg tablets: take 1 to 2 orally every 6 hours as needed for pain. Dispense fifteen (15). No refills. Substitution is permissible. Motrin 800 mg tablets: take 1 tablet orally every 8 hours as needed for pain. Dispense thirty (30). No refills. Substitution is permissible. Follow-up: Follow up with your doctor tomorrow even if well and for wound check. Call for an appointment. Summary of care provided to patient. Screening today revealed the patient's blood pressure to be in the hypertensive range. The patient should follow up with a primary care provider for blood pressure management. Understanding of the discharge instructions verbalized by patient. ADDITIONAL INFORMATION Cellulitis You have an infection of the skin known as cellulitis. This usually starts with a scrape, cut, insect bite, blister or other opening in the skin which becomes infected. This is a serious condition. It must be watched closely to be sure the infection is not spreading. With antibiotic treatment, the size of the red area will gradually shrink in size until the skin returns to normal. This will take 7-10 days. The red area should never increase in size once the antibiotic medicine has been started. Occasionally, an infection will be resistant to one antibiotic and another one will have to be used. Home Care: 1) Limit the use of the affected part, since excess movement can cause the infection to spread. 2) If the infection is on your leg, walk as little as possible during the first few days of the treatment. Keep your leg elevated while sitting. This will reduce swelling. 3) Take all of the antibiotic medicine exactly as directed until it is gone. Be careful not to miss any doses, especially during the first seven days. Follow Up with your doctor or this facility as directed. Check the infected area daily for the warning signs listed below. Get Prompt Medical Attention if any of the following occur: -- Spreading area of redness -- Increasing swelling or pain -- Appearance of pus or drainage -- Fever over 100.4 F (38.0 C) oral, or over 101.4 F (38.6 C) rectal, after two days on antibiotics Periorbital Cellulitis This is an infection of the tissues around the eye. It is most often due to an infected scratch or insect bite. Sometimes a sinus infection can cause this problem. Home Care: 1) Take your antibiotic medicine exactly as directed, until it is finished. 2) You may use acetaminophen (Tylenol) or ibuprofen (Motrin, Advil) to control pain, unless another pain medicine was prescribed. [NOTE: If you have liver disease or ever had a stomach ulcer, talk with your doctor before using these medicines.] Do not use ibuprofen in children under six months of age. Follow Up with your doctor or as advised by our staff. Return Promptly or contact your doctor if any of the following occur: -- Increasing swelling around the eye -- Increasing redness -- Fever of 100.5 (38 C) oral or 101.5 (38.6 C) rectal for more than two days on antibiotics Staph Infection (MRSA) "Staph" is the short name for the common bacteria called "staphylococcus aureus". Staph bacteria are often present on the skin without causing an infection. If it gets under the skin an infection occurs. This causes redness, tenderness, swelling and sometimes fluid drainage. MRSA stands for "Methicillin-Resistant Staph Aureus". Unlike a common staph infection, MRSA bacteria are resistant to the usual antibiotics and harder to treat. Also, MRSA is more toxic than common staph bacteria. It can spread quickly throughout the body and cause a life-threatening illness. MRSA is spread to others by direct physical contact with the bacteria. MRSA can also be transmitted from items contaminated by a person who has the bacteria, such as bandages, towels, bed sheets, or sports equipment. It is not spread through the air. Once you have a MRSA skin infection, you are at risk of having it recur in the future. If MRSA infection is suspected, the doctor may take a wound culture to confirm the diagnosis. Any abscess will be drained. One or sometimes two antibiotics that work against MRSA will be prescribed. Home Care: 1) Take any antibiotics prescribed exactly as directed until they are gone. 2) Follow the same washing procedures as outlined for Household Members below. 3) Keep draining wounds covered with clean, dry bandages. Change dressings as they become soiled. 4) You and those in contact with you should wash their hands frequently with soap and warm water or use an alcohol-based hand systems integration engineer. Do this after each time you change the bandage or touch the wound. 5) Avoid sharing personal items such as towels, washcloths, razors, clothing, or uniforms. Wash soiled sheets, towels or clothes in hot water with laundry detergent. Use an automatic clothes dryer set on high to kill any remaining bacteria. 6) Remove any artificial nails and nail mongolian. 7) If you use a gym, wipe down equipment before and after each use. Treatment Of Household Members If you have been diagnosed with possible MRSA infection, those living with you are at higher risk of carrying the bacteria on their skin or in their nose, even if there is no sign of infection. Bacteria must be removed from the skin of all household members (including you) at the same time, so that it is not passed back and forth. Advise them to remove the bacteria as follows: Wash your whole body (scalp to toes) daily for five days with Hibiclens (chlorhexidine). Scrub fingernails with a brush for one minute twice a day. If any skin infections are present (boils, abscess, infected cut) these must be treated by a doctor. Washing alone will not treat a MRSA infection. Clean counter tops and children's toys; do not share personal items such as toothbrush and razors. It is okay to share glasses, plates, utensils. If antibiotic ointment was prescribed use it as directed. Follow Up with your doctor or as advised by our staff. If a wound culture was taken, call as directed in two days to obtain the results. If the culture result is positive for MRSA, tell medical personnel in the future that you were treated for this type of infection. Get Prompt Medical Attention if any of the following occur: -- Increasing redness, swelling or pain -- Red streaks in the skin around the wound -- Weakness or dizziness -- New appearance of pus or drainage from the wound -- New fever over 100.4 F (38.0 C) Sulfamethoxazole, Trimethoprim Oral tablet What is this medicine? SULFAMETHOXAZOLE; TRIMETHOPRIM or SMX-TMP (suhl fuh meth OK cathy zohl; trye METH oh prim) is a combination of a sulfonamide antibiotic and a second antibiotic, trimethoprim. It is used to treat or prevent certain kinds of bacterial infections. It will not work for colds, flu, or other viral infections. How should I use this medicine? Take this medicine by mouth with a full glass of water. Follow the directions on the prescription label. Take your medicine at regular intervals. Do not take it more often than directed. Do not skip doses or stop your medicine early. Talk to your control system computer scientist regarding the use of this medicine in children. Special care may be needed. This medicine has been used in children as young as 2 months of age. What side effects may I notice from receiving this medicine? Side effects that you should report to your doctor or health school child care attendant as soon as possible: allergic reactions like skin rash or hives, swelling of the face, lips, or tongue breathing problems fever or chills, sore throat irregular heartbeat, chest pain joint or muscle pain pain or difficulty passing urine red pinpoint spots on skin redness, blistering, peeling or loosening of the skin, including inside the mouth unusual bleeding or bruising unusually weak or tired yellowing of the eyes or skin Side effects that usually do not require medical attention (report to your doctor or health school child care attendant if they continue or are bothersome): diarrhea dizziness headache loss of appetite nausea, vomiting nervousness What may interact with this medicine? Do not take this medicine with any of the following medications: aminobenzoate potassium dofetilide metronidazole This medicine may also interact with the following medications: TATA inhibitors like benazepril, enalapril, lisinopril, and ramipril cyclosporine digoxin diuretics indomethacin medicines for diabetes methenamine methotrexate phenytoin potassium supplements pyrimethamine sulfinpyrazone tricyclic antidepressants warfarin What if I miss a dose? If you miss a dose, take it as soon as you can. If it is almost time for your next dose, take only that dose. Do not take double or extra doses. Where should I keep my medicine? Keep out of the reach of children. Store at room temperature between 20 to 25 degrees C (68 to 77 degrees F). Protect from light. Throw away any unused medicine after the expiration date. What should I tell my health care provider before I take this medicine? They need to know if you have any of these conditions: anemia asthma being treated with anticonvulsants if you frequently drink alcohol containing drinks kidney disease liver disease low level of folic acid or lrhofla-7-ddeicxwih dehydrogenase poor nutrition or malabsorption porphyria severe allergies thyroid disorder an unusual or allergic reaction to sulfamethoxazole, trimethoprim, sulfa drugs, other medicines, foods, dyes, or preservatives or trying to get breast-feeding What should I watch for while using this medicine? Tell your doctor or health school child care attendant if your symptoms do not improve. Drink several glasses of water a day to reduce the risk of kidney problems. Do not treat diarrhea with over the counter products. Contact your doctor if you have diarrhea that lasts more than 2 days or if it is severe and watery. This medicine can make you more sensitive to the sun. Keep out of the sun. If you cannot avoid being in the sun, wear protective clothing and use a sunscreen. Do not use sun lamps or tanning beds/booths. Hydrocodone Bitartrate, Acetaminophen Oral tablet What is this medicine? ACETAMINOPHEN; HYDROCODONE (a set a SHEKHAR jessie fen; kayode droe KOE done) is a pain reliever. It is used to treat mild to moderate pain. How should I use this medicine? Take this medicine by mouth. Swallow it with a full glass of water. Follow the directions on the prescription label. If the medicine upsets your stomach, take the medicine with food or milk. Do not take more than you are told to take. Talk to your control system computer scientist regarding the use of this medicine in children. This medicine is not approved for use in children. What side effects may I notice from receiving this medicine? Side effects that you should report to your doctor or health school child care attendant as soon as possible: allergic reactions like skin rash, itching or hives, swelling of the face, lips, or tongue breathing problems confusion feeling faint or lightheaded, falls stomach pain yellowing of the eyes or skin Side effects that usually do not require medical attention (report to your doctor or health school child care attendant if they continue or are bothersome): nausea, vomiting stomach upset What may interact with this medicine? alcohol antihistamines isoniazid medicines for depression, anxiety, or psychotic disturbances medicines for sleep muscle relaxants naltrexone narcotic medicines (opiates) for pain phenobarbital ritonavir tramadol What if I miss a dose? If you miss a dose, take it as soon as you can. If it is almost time for your next dose, take only that dose. Do not take double or extra doses. Where should I keep my medicine? Keep out of the reach of children. This medicine can be abused. Keep your medicine in a safe place to protect it from theft. Do not share this medicine with anyone. Selling or giving away this medicine is dangerous and against the law. Store at room temperature between 15 and 30 degrees C (59 and 86 degrees F). Protect from light. Keep container tightly closed. Throw away any unused medicine after the expiration date. Discard unused medicine and used packaging carefully. Pets and children can be harmed if they find used or lost packages. What should I tell my health care provider before I take this medicine? They need to know if you have any of these conditions: brain tumor Crohn's disease, inflammatory bowel disease, or ulcerative colitis drink more than 3 alcohol-containing drinks per day drug abuse or addiction head injury heart or circulation problems kidney disease or problems going to the bathroom liver disease lung disease, asthma, or breathing problems an unusual or allergic reaction to acetaminophen, hydrocodone, other opioid analgesics, other medicines, foods, dyes, or preservatives or trying to get breast-feeding What should I watch for while using this medicine? Tell your doctor or health school child care attendant if your pain does not go away, if it gets worse, or if you have new or a different type of pain. You may develop tolerance to the medicine. Tolerance means that you will need a higher dose of the medicine for pain relief. Tolerance is normal and is expected if you take the medicine for a long time. Do not suddenly stop taking your medicine because you may develop a severe reaction. Your body becomes used to the medicine. This does NOT mean you are addicted. Addiction is a behavior related to getting and using a drug for a non-medical reason. If you have pain, you have a medical reason to take pain medicine. Your doctor will tell you how much medicine to take. If your doctor wants you to stop the medicine, the dose will be slowly lowered over time to avoid any side effects. You may get drowsy or dizzy when you first start taking the medicine or change doses. Do not drive, use machinery, or do anything that may be dangerous until you know how the medicine affects you. Stand or sit up slowly. There are different types of narcotic medicines (opiates) for pain. If you take more than one type at the same time, you may have more side effects. Give your health care provider a list of all medicines you use. Your doctor will tell you how much medicine to take. Do not take more medicine than directed. Call emergency for help if you have problems breathing. The medicine will cause constipation. Try to have a bowel movement at least every 2 to 3 days. If you do not have a bowel movement for 3 days, call your doctor or health school child care attendant. Too much acetaminophen can be very dangerous. Do not take Tylenol (acetaminophen) or medicines that contain acetaminophen with this medicine. Many non-prescription medicines contain acetaminophen. Always read the labels carefully. Ibuprofen Oral tablet What is this medicine? IBUPROFEN (eye BYOO proe fen) is a non-steroidal anti-inflammatory drug (NSAID). It is used for dental pain, fever, headaches or migraines, osteoarthritis, rheumatoid arthritis, or painful monthly periods. It can also relieve minor aches and pains caused by a cold, flu, or sore throat. How should I use this medicine? Take this medicine by mouth with a glass of water. Follow the directions on the prescription label. Take this medicine with food if your stomach gets upset. Try to not lie down for at least 10 minutes after you take the medicine. Take your medicine at regular intervals. Do not take your medicine more often than directed. A special MedGuide will be given to you by the pharmacist with each prescription and refill. Be sure to read this information carefully each time. Talk to your control system computer scientist regarding the use of this medicine in children. Special care may be needed. What side effects may I notice from receiving this medicine? Side effects that you should report to your doctor or health school child care attendant as soon as possible: allergic reactions like skin rash, itching or hives, swelling of the face, lips, or tongue black or bloody stools, blood in the urine or in vomit breathing problems changes in vision chest pain general ill feeling or flu-like symptoms nausea or vomiting redness, blistering, peeling or loosening of the skin, including inside the mouth slurred speech or weakness on one side of the body stomach pain unexplained weight gain or swelling unusually weak or tired yellowing of eyes or skin Side effects that usually do not require medical attention (report to your doctor or health school child care attendant if they continue or are bothersome): constipation or diarrhea dizziness gas or heartburn stomach upset What may interact with this medicine? Do not take this medicine with any of the following medications: cidofovir ketorolac methotrexate pemetrexed This medicine may also interact with the following medications: alcohol aspirin diuretics lithium other drugs for inflammation like prednisone warfarin What if I miss a dose? If you miss a dose, take it as soon as you can. If it is almost time for your next dose, take only that dose. Do not take double or extra doses. Where should I keep my medicine? Keep out of the reach of children. Store at room temperature between 15 and 30 degrees C (59 and 86 degrees F). Keep container tightly closed. Throw away any unused medicine after the expiration date. What should I tell my health care provider before I take this medicine? They need to know if you have any of these conditions: asthma cigarette smoker drink more than 3 alcohol containing drinks a day heart disease or circulation problems such as heart failure or leg edema (fluid retention) high blood pressure kidney disease liver disease stomach bleeding or ulcers an unusual or allergic reaction to ibuprofen, aspirin, other NSAIDS, other medicines, foods, dyes, or preservatives or trying to get breast-feeding What should I watch for while using this medicine? Tell your doctor or healthcare professional if your symptoms do not start to get better or if they get worse. This medicine does not prevent heart attack or stroke. In fact, this medicine may increase the chance of a heart attack or stroke. The chance may increase with longer use of this medicine and in people who have heart disease. If you take aspirin to prevent heart attack or stroke, talk with your doctor or health school child care attendant. Do not take other medicines that contain aspirin, ibuprofen, or naproxen with this medicine. Side effects such as stomach upset, nausea, or ulcers may be more likely to occur. Many medicines available without a prescription should not be taken with this medicine. This medicine can cause ulcers and bleeding in the stomach and intestines at any time during treatment. Ulcers and bleeding can happen without warning symptoms and can cause . To reduce your risk, do not smoke cigarettes or drink alcohol while you are taking this medicine. You may get drowsy or dizzy. Do not drive, use machinery, or do anything that needs mental alertness until you know how this medicine affects you. Do not stand or sit up quickly, especially if you are an older patient. This reduces the risk of dizzy or fainting spells. This medicine can cause you to bleed more easily. Try to avoid damage to your teeth and gums when you brush or floss your teeth. You have been given the following additional information: Cellulitis Carlotta-Orbital Cellulitis MRSA Skin Infection, Suspected Or Confirmed Sulfamethoxazole, Trimethoprim Oral tablet Hydrocodone Bitartrate, Acetaminophen Oral tablet Ibuprofen Oral tablet (Electronically signed by Milagros Lux A.R.N.P. 02/07/2017 22:31)
== END 2017-02-07 22:20 | disposition home or self-care (01) ==
LOC: ED SRH 19:13
DX: L03.211 Cellulitis of face (principal); L03.116 Cellulitis of left lower limb; I10 Essential (primary) hypertension; K21.9 Gastro-esophageal reflux disease without esophagitis; F17.210 Nicotine dependence, cigarettes, uncomplicated; J45.909 Unspecified asthma, uncomplicated; Z79.899 Other long term (current) drug therapy; Z88.0 Allergy status to penicillin
CPT/HCPCS: 90065; 90070; 90100; 90131; 90309; 90470; 91672; 92031; 93004; 95059